=== PATIENT | male | born 1950 | race Caucasian/White ===

== ENCOUNTER 2022-05-15 10:56 | Emergency (ER) | payer MEDICARE ==
--- OUTSIDE RECORDS SUMMARY | 2022-05-15 11:04 | XMS REPORT | Continuity of Care Document ---
:1950 Author Organization [facility] t Address [address] [place] [address] Care Team Providers Name Role Phone MD MIKA YEUNG Primary Care Physician Malachi Gomez Attending Clinician Unavailable Melissa Montoya Attending Clinician Lisa Attending Clinician Unavailable Naomie Attending Clinician Unavailable Kerline Attending Clinician Unavailable Foreign Soria Attending Clinician [phone] CLYDE LIRA Attending Clinician Unavailable Aldair Mondragon Jr. Attending Clinician JUSTIN GUERRERO Attending Clinician Unavailable MAHAD COWART Attending Clinician Unavailable Clyde Lira Admitting Clinician Unavailable Lisa Admitting Clinician Unavailable Naomie Admitting Clinician Unavailable Kerline Admitting Clinician Unavailable MAHAD COWART Admitting Clinician Unavailable Payers Payer Name Policy Type Policy Number Effective Date Expiration Date S [place] [facility] 2019 (MEDICARE 00:00:00 REPLACEMENT HMO) [facility] 2020 MCR 00:00:00 Problems Condition Condition Condition Status Onset Resolution Last Treating Co mments Source Name Details Category Date Date Treatment Clinician Date Testicular Testicular Problem Active [place] [facility] Hypofuncti 2-01 Me tro on on 00:00: Urology 00 Body mass Body Mass Problem Active Tony ston index 30+ Index 30+ 2-01 Metr o - obesity - Obesity 00:00: Urol ogy 00 Bladder Bladder Problem Active [place] outlet Outlet 2- [facility] obstructio Obstructio 00:00: Ur ology n n 00 Secondary Secondary Problem Active [facility] ston erectile Erectile 2- [facility] dysfunctio Dysfunctio 00:00: Ur ology n n 00 Problem Condition Active [facility] Allergies, Adverse Reactions, Alerts Allergy Allergy Status Severity Reaction(s) Onset Inactive Treating Comm ents Source Name Type Date Date Clinician No Known DA Active [facility] Allergie 5-04 Clear s 00:00: [place] 00 [facility] NO KNOWN Allergy Active [facility] No Known DA Active [facility] Social History Social Habit Start Date Stop Date Quantity Comments Source History SDOH [facility] Std Drinks [facility] History SDOH [facility] Alcohol Binge [facility] History SDOH [facility] Alcohol Comment Medical C enter Tobacco use and 2020-11-03 2020-11-[address] [facility] [address] [facility] exposure 00:00:00 00:00:00 [facility] Alcohol intake 2020-11-03 2020-11-[address] [facility] 00:00:00 00:00:00 non-drinker Medical Cent[facility] r (finding) History SDOH 2020-11-03 2020-11-[address] [facility] Alcohol Frequency 00:00:00 00:00:00 [facility] Sex Assigned At [address] 00:00:00 00:00:00 [facility] Smoking Status Start Date Stop Date Source Never Smoker [facility] Ur ology Medications Ordered Filled Start Stop Current Ordering Indication Dosage Frequency Signature Comments Components Source Medication Medication Date Date Medication? Clinician (SIG) Name Name aspirin 81 Yes 81mg Take [address] [facility] chewable 6-21 by mouth. Ayad es tablet 11:21: Medical 40 [place] losartan Yes 50mg Q.5D Take [address] (COZAAR) 50 6-11 by mouth 2 Gianna kes MG tablet 00:00: (two) Medical 00 times Center daily. lovastatin Yes TAKE 1 [facility] (MEVACOR) 6-09 TABLET BY [facility]ukes 20 MG 00:00: MOUTH ONCE Medica l tablet 00 DAILY WITH Center A MEAL FOR 90 DAYS clopidogreL Yes 75mg QD Take [address] (PLAVIX) 75 6-08 by mouth Luke s mg tablet 00:00: daily. Medica l [place] metoprolol Yes 25mg QD Take [address] succinate 5-31 by mouth [facility]ukes (TOPROL-XL) 00:00: daily. Medi taryn 25 MG 24 hr 00 Center tablet montelukast Yes 10mg QD Take [address] (SINGULAIR) 5-23 by mouth Luke s 10 mg 00:00: daily. Medical tablet 00 [place] amLODIPine Yes 5mg QD Take [address] (NORVASC) 5 4-25 by mouth Luke s MG tablet 00:00: daily. Medica l 00 [place] fenofibrate Yes 54mg QD Take [address] (LOFIBRA) 4-25 by mouth Lukes 54 MG 00:00: daily. Medical tablet 00 [place] levocetiriz Yes TAKE [address] ine (XYZAL) 4-11 TABLET BY Ayad es 5 MG tablet 00:00: MOUTH ONCE Medical 00 DAILY IN Center THE EVENING FOR 90 DAYS citalopram Yes 20mg QD Take [address] (CeleXA) 20 4-10 by mouth Luke s MG tablet 00:00: daily. Medica l 00 [place] amlodipine amlodipine No amlodipine [place] 5 mg tablet 5 mg tablet 5 mg M etro TAKE 1 TAKE 1 tablet Urology TABLET BY TABLET BY TAKE 1 MOUTH ONCE MOUTH ONCE TABLET BY DAILY DAILY MOUTH ONCE DAILY atorvastati atorvastati No atorvastat [place] 40 mg n 40 mg in 40 mg [facility] tablet TAKE tablet TAKE tablet Urology 1 TABLET BY 1 TABLET BY TAKE 1 MOUTH ONCE MOUTH ONCE TABLET BY DAILY DAILY MOUTH ONCE DAILY citalopram citalopram No citalopram [place] 20 mg 20 mg 20 mg [facility] tablet TAKE tablet TAKE tablet Urology 1 TABLET BY 1 TABLET BY TAKE 1 MOUTH ONCE MOUTH ONCE TABLET BY DAILY DAILY MOUTH ONCE DAILY clobetasol clobetasol No clobetasol [place] 0.05 % 0.05 % 0.05 % [facility] topical topical topical Urolog y cream APPLY cream APPLY cream CREAM CREAM APPLY EXTERNALLY EXTERNALLY CREAM TWICE DAILY TWICE DAILY EXTERNALLY FOR 10 DAYS FOR 10 DAYS TWICE DAILY FOR 10 DAYS clopidogrel clopidogrel No clopidogre [place] 75 mg 75 mg l 75 mg [facility] tablet tablet tablet Urology fenofibrate fenofibrate No fenofibrat [place] 54 mg 54 mg e 54 mg [facility] tablet TAKE tablet TAKE tablet Urology 1 TABLET BY 1 TABLET BY TAKE 1 MOUTH ONCE MOUTH ONCE TABLET BY DAILY DAILY MOUTH ONCE DAILY fluorometho fluorometho No fluorometh [place] lone 0.1 % lone 0.1 % olone 0.1 [facility] eye eye % eye Urology drops,suspe drops,suspe drops,susp nsion nsion ension INSTILL ONE INSTILL ONE INSTILL (1) DROP(S) (1) DROP(S) ONE (1) IN LEFT EYE IN LEFT EYE DROP(S) IN ONCE A DAY. ONCE A DAY. LEFT EYE ONCE A DAY. glipizide glipizide No glipizide [place] ER 5 mg ER 5 mg ER 5 mg [facility] tablet, tablet, tablet, Urolog y extended extended extended release 24 release 24 release 24 hr TAKE 1 hr TAKE 1 hr TAKE 1 TABLET BY TABLET BY TABLET BY MOUTH ONCE MOUTH ONCE MOUTH ONCE DAILY WITH DAILY WITH DAILY WITH FOOD FOOD FOOD levocetiriz levocetiriz No levocetiri [place] cathy selby [facility] losartan 50 losartan 50 No losartan Whit[place] mg tablet mg tablet 50 mg Metr o TAKE 1 TAKE 1 tablet Urology TABLET BY TABLET BY TAKE 1 MOUTH TWICE MOUTH TWICE TABLET BY DAILY DAILY MOUTH TWICE DAILY metoprolol metoprolol No metoprolol [place] succinate succinate succinate [facility] ER 25 mg ER 25 mg ER 25 mg Uro logy tablet,exte tablet,exte tablet,ext nded nded ended release 24 release 24 release 24 hr TAKE 1 hr TAKE 1 hr TAKE 1 TABLET BY TABLET BY TABLET BY MOUTH ONCE MOUTH ONCE MOUTH ONCE DAILY DAILY DAILY montelukast montelukast No montelukas [place] t [facility] montelukast montelukast No montelukas [place] 10 mg 10 mg t 10 mg [facility] tablet tablet tablet Urology rosuvastati rosuvastati No rosuvastat [place] n n in [facility] amlodipine amlodipine No amlodipine [place] 5 mg tablet 5 mg tablet 5 mg M etro TAKE 1 TAKE 1 tablet Urology TABLET BY TABLET BY TAKE 1 MOUTH ONCE MOUTH ONCE TABLET BY DAILY DAILY MOUTH ONCE DAILY atorvastati atorvastati No atorvastat [place] n 40 mg n 40 mg in 40 mg [facility] tablet TAKE tablet TAKE tablet Urology 1 TABLET BY 1 TABLET BY TAKE 1 MOUTH ONCE MOUTH ONCE TABLET BY DAILY DAILY MOUTH ONCE DAILY citalopram citalopram No citalopram [place] 20 mg 20 mg 20 mg [facility] tablet TAKE tablet TAKE tablet Urology 1 TABLET BY 1 TABLET BY TAKE 1 MOUTH ONCE MOUTH ONCE TABLET BY DAILY DAILY MOUTH ONCE DAILY clobetasol clobetasol No clobetasol [place] 0.05 % 0.05 % 0.05 % [facility] topical topical topical Urolog y cream APPLY cream APPLY cream CREAM CREAM APPLY EXTERNALLY EXTERNALLY CREAM TWICE DAILY TWICE DAILY EXTERNALLY FOR 10 DAYS FOR 10 DAYS TWICE DAILY FOR 10 DAYS clopidogrel clopidogrel No clopidogre [place] 75 mg 75 mg l 75 mg [facility] tablet TAKE tablet TAKE tablet Urology 1 TABLET BY 1 TABLET BY TAKE 1 MOUTH ONCE MOUTH ONCE TABLET BY DAILY DAILY MOUTH ONCE DAILY fenofibrate fenofibrate No fenofibrat [place] 54 mg 54 mg e 54 mg [facility] tablet TAKE tablet TAKE tablet Urology 1 TABLET BY 1 TABLET BY TAKE 1 MOUTH ONCE MOUTH ONCE TABLET BY DAILY DAILY MOUTH ONCE DAILY fluorometho fluorometho No fluorometh [place] lone 0.1 % lone 0.1 % olone 0.1 [facility] eye eye % eye Urology drops,suspe drops,suspe drops,susp nsion nsion ension INSTILL ONE INSTILL ONE INSTILL (1) DROP(S) (1) DROP(S) ONE (1) IN LEFT EYE IN LEFT EYE DROP(S) IN ONCE A DAY. ONCE A DAY. LEFT EYE ONCE A DAY. glipizide glipizide No glipizide [place] ER 5 mg ER 5 mg ER 5 mg [facility] tablet, tablet, tablet, Urolog y extended extended extended release 24 release 24 release 24 hr TAKE 1 hr TAKE 1 hr TAKE 1 TABLET BY TABLET BY TABLET BY MOUTH ONCE MOUTH ONCE MOUTH ONCE DAILY WITH DAILY WITH DAILY WITH FOOD FOOD FOOD levocetiriz levocetiriz No levocetiri [place] cathy selby [facility] losartan 50 losartan 50 No losartan Whit[place] mg tablet mg tablet 50 mg Metr o TAKE 1 TAKE 1 tablet Urology TABLET BY TABLET BY TAKE 1 MOUTH TWICE MOUTH TWICE TABLET BY DAILY DAILY MOUTH TWICE DAILY metoprolol metoprolol No metoprolol [place] succinate succinate succinate [facility] ER 25 mg ER 25 mg ER 25 mg Uro logy tablet,exte tablet,exte tablet,ext nded nded ended release 24 release 24 release 24 hr TAKE 1 hr TAKE 1 hr TAKE 1 TABLET BY TABLET BY TABLET BY MOUTH ONCE MOUTH ONCE MOUTH ONCE DAILY DAILY DAILY montelukast montelukast No montelukas [place] t [facility] montelukast montelukast No montelukas [place] 10 mg 10 mg t 10 mg [facility] tablet tablet tablet Urology rosuvastati rosuvastati No rosuvastat [place] n n in [facility] amlodipine amlodipine No amlodipine [place] 5 mg tablet 5 mg tablet 5 mg M etro TAKE 1 TAKE 1 tablet Urology TABLET BY TABLET BY TAKE 1 MOUTH ONCE MOUTH ONCE TABLET BY DAILY DAILY MOUTH ONCE DAILY atorvastati atorvastati No atorvastat [place] n 40 mg n 40 mg in 40 mg [facility] tablet TAKE tablet TAKE tablet Urology 1 TABLET BY 1 TABLET BY TAKE 1 MOUTH ONCE MOUTH ONCE TABLET BY DAILY DAILY MOUTH ONCE DAILY citalopram citalopram No citalopram [place] 20 mg 20 mg 20 mg [facility] tablet TAKE tablet TAKE tablet Urology 1 TABLET BY 1 TABLET BY TAKE 1 MOUTH ONCE MOUTH ONCE TABLET BY DAILY DAILY MOUTH ONCE DAILY clobetasol clobetasol No clobetasol [place] 0.05 % 0.05 % 0.05 % [facility] topical topical topical Urolog y cream APPLY cream APPLY cream CREAM CREAM APPLY EXTERNALLY EXTERNALLY CREAM TWICE DAILY TWICE DAILY EXTERNALLY FOR 10 DAYS FOR 10 DAYS TWICE DAILY FOR 10 DAYS clopidogrel clopidogrel No clopidogre [place] 75 mg 75 mg l 75 mg [facility] tablet TAKE tablet TAKE tablet Urology 1 TABLET BY 1 TABLET BY TAKE 1 MOUTH ONCE MOUTH ONCE TABLET BY DAILY DAILY MOUTH ONCE DAILY fenofibrate fenofibrate No fenofibrat [place] 54 mg 54 mg e 54 mg [facility] tablet TAKE tablet TAKE tablet Urology 1 TABLET BY 1 TABLET BY TAKE 1 MOUTH ONCE MOUTH ONCE TABLET BY DAILY DAILY MOUTH ONCE DAILY fluorometho fluorometho No fluorometh [place] 0.1 % lone 0.1 % olone 0.1 [facility] eye eye % eye Urology drops,suspe drops,suspe drops,susp nsion nsion ension INSTILL ONE INSTILL ONE INSTILL (1) DROP(S) (1) DROP(S) ONE (1) IN LEFT EYE IN LEFT EYE DROP(S) IN ONCE A DAY. ONCE A DAY. LEFT EYE ONCE A DAY. glipizide glipizide No glipizide [place] ER 5 mg ER 5 mg ER 5 mg [facility] tablet, tablet, tablet, Urolog y extended extended extended release 24 release 24 release 24 hr TAKE 1 hr TAKE 1 hr TAKE 1 TABLET BY TABLET BY TABLET BY MOUTH ONCE MOUTH ONCE MOUTH ONCE DAILY WITH DAILY WITH DAILY WITH FOOD FOOD FOOD levocetiriz levocetiriz No levocetiri [place] ine ine zine [facility] losartan 50 losartan 50 No losartan [place] mg tablet mg tablet 50 mg Metr o TAKE 1 TAKE 1 tablet Urology TABLET BY TABLET BY TAKE 1 MOUTH TWICE MOUTH TWICE TABLET BY DAILY DAILY MOUTH TWICE DAILY metoprolol metoprolol No metoprolol [place] succinate succinate succinate [facility] ER 25 mg ER 25 mg ER 25 mg Uro logy tablet,exte tablet,exte tablet,ext nded nded ended release 24 release 24 release 24 hr TAKE 1 hr TAKE 1 hr TAKE 1 TABLET BY TABLET BY TABLET BY MOUTH ONCE MOUTH ONCE MOUTH ONCE DAILY DAILY DAILY montelukast montelukast No montelukas [place] t [facility] montelukast montelukast No montekas [place] 10 mg 10 mg t 10 mg [facility] tablet tablet tablet Urology rosuvastati rosuvastati No rosuvastat [place] n n in [facility] testosteron testosteron No .5mL Q1W testostero [place] e cypionate e cypionate ne M etro 200 mg/mL 200 mg/mL cypionate Urology intramuscul intramuscul 200 mg/mL ar oil ar oil intramuscu Inject 0.5 Inject 0.5 lar oil mL every mL every Inject 0.5 week by week by mL every intramuscul intramuscul week by ar route ar route intramuscu for 28 for 28 lar route days. days. for 28 days. Vascepa 1 Vascepa 1 No Vascepa 1 [place] gram gram gram [facility] capsule capsule capsule Urolog y TAKE 2 TAKE 2 TAKE 2 CAPSULES BY CAPSULES BY CAPSULES MOUTH TWICE MOUTH TWICE BY MOUTH DAILY WITH DAILY WITH TWICE MEALS MEALS DAILY WITH MEALS amlodipine amlodipine No amlodipine [place] 5 mg tablet 5 mg tablet 5 mg M etro TAKE 1 TAKE 1 tablet Urology TABLET BY TABLET BY TAKE 1 MOUTH ONCE MOUTH ONCE TABLET BY DAILY DAILY MOUTH ONCE DAILY citalopram citalopram No citalopram [place] 20 mg 20 mg 20 mg [facility] tablet TAKE tablet TAKE tablet Urology 1 TABLET BY 1 TABLET BY TAKE 1 MOUTH ONCE MOUTH ONCE TABLET BY DAILY DAILY MOUTH ONCE DAILY clobetasol clobetasol No clobetasol [place] 0.05 % 0.05 % 0.05 % [facility] topical topical topical Urolog y cream APPLY cream APPLY cream CREAM CREAM APPLY EXTERNALLY EXTERNALLY CREAM TWICE DAILY TWICE DAILY EXTERNALLY FOR 10 DAYS FOR 10 DAYS TWICE DAILY FOR 10 DAYS clopidogrel clopidogrel No clopidogre [place] 75 mg 75 mg l 75 mg [facility] tablet tablet tablet Urology fenofibrate fenofibrate No fenofibrat [place] 54 mg 54 mg e 54 mg [facility] tablet TAKE tablet TAKE tablet Urology 1 TABLET BY 1 TABLET BY TAKE 1 MOUTH ONCE MOUTH ONCE TABLET BY DAILY DAILY MOUTH ONCE DAILY fluorometho fluorometho No fluorometh [place] lone 0.1 % lone 0.1 % olone 0.1 [facility] eye eye % eye Urology drops,suspe drops,suspe drops,susp nsion nsion ension INSTILL ONE INSTILL ONE INSTILL (1) DROP(S) (1) DROP(S) ONE (1) IN LEFT EYE IN LEFT EYE DROP(S) IN ONCE A DAY. ONCE A DAY. LEFT EYE ONCE A DAY. glipizide glipizide No glipizide [place] ER 5 mg ER 5 mg ER 5 mg [facility] tablet, tablet, tablet, Urolog y extended extended extended release 24 release 24 release 24 hr TAKE 1 hr TAKE 1 hr TAKE 1 TABLET BY TABLET BY TABLET BY MOUTH ONCE MOUTH ONCE MOUTH ONCE DAILY WITH DAILY WITH DAILY WITH FOOD FOOD FOOD levocetiriz levocetiriz No levocetiri [place] ine ine zine [facility] losartan 50 losartan 50 No losartan [place] mg tablet mg tablet 50 mg Metr o TAKE 1 TAKE 1 tablet Urology TABLET BY TABLET BY TAKE 1 MOUTH TWICE MOUTH TWICE TABLET BY DAILY DAILY MOUTH TWICE DAILY metoprolol metoprolol No 1 Q1D metoprolol [place] succ 25 succ 25 succ 25 [facility] mg-hydrochl mg-hydrochl mg-hydroch Urology orothiazide orothiazide lorothiazi 12.5 mg 12.5 mg de 12.5 mg tablet,ext. tablet,ext. tablet,ext rel 24 hr rel 24 hr .rel 24 hr Take 1 Take 1 Take 1 tablet tablet tablet every day every day every day by oral by oral by oral route. route. route. metoprolol metoprolol No metoprolol [place] succinate succinate succinate [facility] ER 25 mg ER 25 mg ER 25 mg Uro logy tablet,exte tablet,exte tablet,ext nded nded ended release 24 release 24 release 24 hr TAKE 1 hr TAKE 1 hr TAKE 1 TABLET BY TABLET BY TABLET BY MOUTH ONCE MOUTH ONCE MOUTH ONCE DAILY DAILY DAILY montelukast montelukast No montelukas [place] t [facility]el[facility] t 10 mg [facility] tablet tablet tablet Urology rosuvastati rosuvastati No rosuvastat [place] n n in [facility] amlodipine amlodipine No amlodipine [place] 5 mg tablet 5 mg tablet 5 mg M etro TAKE 1 TAKE 1 tablet Urology TABLET BY TABLET BY TAKE 1 MOUTH ONCE MOUTH ONCE TABLET BY DAILY DAILY MOUTH ONCE DAILY atorvastati atorvastati No atorvastat [place] n 40 mg n 40 mg in 40 mg [facility] tablet TAKE tablet TAKE tablet Urology 1 TABLET BY 1 TABLET BY TAKE 1 MOUTH ONCE MOUTH ONCE TABLET BY DAILY DAILY MOUTH ONCE DAILY citalopram citalopram No citalopram [place] 20 mg 20 mg 20 mg [facility] tablet TAKE tablet TAKE tablet Urology 1 TABLET BY 1 TABLET BY TAKE 1 MOUTH ONCE MOUTH ONCE TABLET BY DAILY DAILY MOUTH ONCE DAILY clobetasol clobetasol No clobetasol [place] 0.05 % 0.05 % 0.05 % [facility] topical topical topical Urolog y cream APPLY cream APPLY cream CREAM CREAM APPLY EXTERNALLY EXTERNALLY CREAM TWICE DAILY TWICE DAILY EXTERNALLY FOR 10 DAYS FOR 10 DAYS TWICE DAILY FOR 10 DAYS clopidogrel clopidogrel No clopidogre [place] 75 mg 75 mg l 75 mg [facility] tablet tablet tablet Urology fenofibrate fenofibrate No fenofibrat [place] 54 mg 54 mg e 54 mg [facility] tablet TAKE tablet TAKE tablet Urology 1 TABLET BY 1 TABLET BY TAKE 1 MOUTH ONCE MOUTH ONCE TABLET BY DAILY DAILY MOUTH ONCE DAILY fluorometho fluorometho No fluorometh [place] lone 0.1 % lone 0.1 % olone 0.1 [facility] eye eye % eye Urology drops,suspe drops,suspe drops,susp nsion nsion ension INSTILL ONE INSTILL ONE INSTILL (1) DROP(S) (1) DROP(S) ONE (1) IN LEFT EYE IN LEFT EYE DROP(S) IN ONCE A DAY. ONCE A DAY. LEFT EYE ONCE A DAY. glipizide glipizide No glipizide [place] ER 5 mg ER 5 mg ER 5 mg [facility] tablet, tablet, tablet, Urolog y extended extended extended release 24 release 24 release 24 hr TAKE 1 hr TAKE 1 hr TAKE 1 TABLET BY TABLET BY TABLET BY MOUTH ONCE MOUTH ONCE MOUTH ONCE DAILY WITH DAILY WITH DAILY WITH FOOD FOOD FOOD levocetiriz levocetiriz No levocetiri [place] ine ine zine [facility] losartan 50 losartan 50 No losartan [place] mg tablet mg tablet 50 mg Metr o TAKE 1 TAKE 1 tablet Urology TABLET BY TABLET BY TAKE 1 MOUTH TWICE MOUTH TWICE TABLET BY DAILY DAILY MOUTH TWICE DAILY metoprolol metoprolol No 1 Q1D metoprolol [place] succ 25 succ 25 succ 25 [facility] mg-hydrochl mg-hydrochl mg-hydroch Urology orothiazide orothiazide lorothiazi 12.5 mg 12.5 mg de 12.5 mg tablet,ext. tablet,ext. tablet,ext rel 24 hr rel 24 hr .rel 24 hr Take 1 Take 1 Take 1 tablet tablet tablet every day every day every day by oral by oral by oral route. route. route. metoprolol metoprolol No metoprolol [place] succinate succinate succinate [facility] ER 25 mg ER 25 mg ER 25 mg Uro logy tablet,exte tablet,exte tablet,ext nded nded ended release 24 release 24 release 24 hr TAKE 1 hr TAKE 1 hr TAKE 1 TABLET BY TABLET BY TABLET BY MOUTH ONCE MOUTH ONCE MOUTH ONCE DAILY DAILY DAILY montelukast montelukast No montelukas [place] t [facility] montelukast montelukast No montelukas [place] 10 mg 10 mg t 10 mg [facility] tablet tablet tablet Urology rosuvastati rosuvastati No rosuvastat [place] [facility] Amlodipine Amlodipine Yes Daily [facility] Besylate Besylate [facility] Aspirin Aspirin Yes 81 [facility] Citalopram Citalopram Yes [address] Hydrobromid Hydrobromid L ukes e e Patient (Citalopram (Citalopram M edical Hbr) 20 Mg Hbr) [address] TABLET TABLET Clopidogrel Clopidogrel Yes Daily [facility] Bisulfate Bisulfate [facility] (Clopidogre (Clopidogre P atient l) 75 Mg l) 75 Mg Medical TABLET TABLET Center Fenofibrate Fenofibrate Yes [address] Nanocrystal Nanocrystal L ukes lized lized Patient (Fenofibrat (Fenofibrat M edical e) 145 Mg e) 145 Mg Cente r TABLET TABLET Fluromethol Fluromethol Yes [address] [facility] Folic Acid Folic Acid Yes 1 [facility] Losartan Losartan Yes [facility] Potassium Potassium [facility] Lovastatin Lovastatin Yes [facility] Metoprolol Metoprolol Yes 25 Daily [facility] Montelukast Montelukast Yes [address] Sodium Sodium [facility] Sitagliptin Sitagliptin Yes Daily [facility] Phosphate Phosphate [facility] (Januvia) (Januvia) Patie nt 100 Mg 100 Mg Medical TABLET TABLET Center Fluromethol Fluromethol 2020- No [facility]-14 [facility] 00:00 Patient :00 Medical Center Vital Signs Vital Name Observation Time Observation Value Comments Source BP Diastolic 2021-10-13 00:00:00 76 mm[Hg] [facility] Height 2021-10-13 00:00:00 68 [in_i] [facility] BMI (Body Mass Index) 2021-10-13 00:00:00 31.9 kg/m2 [facility] BP Systolic 2021-10-13 00:00:00 120 mm[Hg] [facility] Body Weight 2021-10-13 00:00:00 210 [lb_av] [facility] BP Diastolic 2021-09-22 00:00:00 76 mm[Hg] [facility] Height 2021-09-22 00:00:00 68 [in_i] [place] [facility] BMI (Body Mass Index) 2021-09-22 00:00:00 31.9 kg/m2 [place] [facility] BP Systolic 2021-09-22 00:00:00 120 mm[Hg] [place] [facility] Body Weight 2021-09-22 00:00:00 210 [lb_av] [place] [facility] BP Diastolic 2021-09-08 00:00:00 76 mm[Hg] [place] [facility] Height 2021-09-08 00:00:00 68 [in_i] [place] [facility] BMI (Body Mass Index) 2021-09-08 00:00:00 31.9 kg/m2 [place] [facility] BP Systolic 2021-09-08 00:00:00 120 mm[Hg] [place] [facility] Body Weight 2021-09-08 00:00:00 210 [lb_av] [place] [facility] BP Diastolic 2021-08-25 00:00:00 76 mm[Hg] [place] [facility] Height 2021-08-25 00:00:00 68 [in_i] [place] [facility] BMI (Body Mass Index) 2021-08-25 00:00:00 31.9 kg/m2 [place] [facility] BP Systolic 2021-08-25 00:00:00 120 mm[Hg] [place] [facility] Body Weight 2021-08-25 00:00:00 210 [lb_av] [place] [facility] BP Diastolic 2021-08-11 00:00:00 80 [facility]Hg[facility] 2021-08-11 00:00:00 68 [in_i] [place] [facility] BMI (Body Mass Index) 2021-08-11 00:00:00 31.9 kg/m2 [place] [facility] BP Systolic 2021-08-11 00:00:00 120 mm[facility]Hg[facility] Body Weight 2021-08-11 00:00:00 210 [lb_av[facility] HEIGHT 2020-11-03 11:21:00 172.7 cm WEIGHT 2020-11-03 11:21:00 94.348 kg Body Temperature 2020-01-16 10:15:00 98.1 [degF] [facility] Heart Rate 2020-01-16 10:15:00 73 /min [facility] Respiratory rate 2020-01-16 10:15:00 19 /min [facility] BP Systolic 2020-01-16 10:15:00 113 mm[Hg] [facility] BP Diastolic 2020-01-16 10:15:00 80 mm[Hg] [facility] Oxygen saturation by 2020-01-16 10:15:00 97 /min [facility] Pulse oximetry Patient Medic al Center Body Temperature 2020-01-16 09:15:00 98.1 [degF] [facility] Procedures Procedure Date / Time Performed Performing Clinician [facility] TOTAL HIP ARTHROPLASTY 2020-01-15 00:00:[address] [facility] X-ray of chest, two 2020-01-11 00:00:00 [facility] Plan of Care Planned Activity Planned Date Details Comments Source Future Scheduled 2022-01-14 INFLUENZA VACCINE (#1) [facility] 00:00:00 [code = INFLUENZA Medical Ce nter VACCINE (#1)] Future Scheduled 2021-05-[address] [facility] 00:00:00 WELLNESS (YEAR 2 or Medical Center FIRST YEAR if no IPPE) [code = MEDICARE ANNUAL WELLNESS (YEAR 2 or FIRST YEAR if no IPPE)] Future Scheduled 2021-05-[address] [facility] Test 00:00:00 (12+) [code = Medical Center DEPRESSION SCREENING (12+)] Future Scheduled 2021-05-16 FALLS RISK SCREENING [facility] Test 00:00:00 [code = FALLS RISK Medical C enter SCREENING] Future Scheduled 2020-10-08 DTAP/TDAP/TD VACCINES [facility] 00:00:00 (2 - Td or Tdap) [code Medic [place] Center = DTAP/TDAP/TD VACCINES (2 - Td or Tdap)] Future Scheduled 2013 PNEUMOCOCCAL 65+ YRS ([address] [facility] 00:00:00 - PCV) [code = Medical Cente r PNEUMOCOCCAL 65+ YRS (1 - PCV)] Future Scheduled 1998 SHINGLES VACCINES ([address] [facility] 00:00:00 2) [code = SHINGLES Medical Center VACCINES (1 of 2)] Future Scheduled 1966 HEPATITIS C SCREENING [facility] 00:00:00 [code = HEPATITIS C Medical Center SCREENING] Future Scheduled [address] [facility] 00:00:00 Counseling and Medical Cente r Screening (12+) [code = Tobacco Cessation Counseling and Screening (12+)] Future Scheduled 1949-05-18 COVID-19 VACCINE (#1) [facility] 00:00:00 [code = COVID-[address] VACCINE (#1)] Future Scheduled 1948 CT Colonography (combo) [facility] 00:00:00 [code = CT Colonography [facility] (combo)] Future Scheduled 1948 Screening for malignant [facility] 00:00:00 neoplasm of colon Medical Ce nter (procedure) [code = 958707066] Future Scheduled 1948 Screening for malignant [facility] 00:00:00 neoplasm of colon Medical Ce nter (procedure) [code = 135336608] Future Scheduled 1948 Screening for malignant [facility] 00:00:00 neoplasm of colon Medical Ce nter (procedure) [code = 343749706] Future Scheduled 1948 Screening for malignant [facility] 00:00:00 neoplasm of colon Medical Ce nter (procedure) [code = 438398499] Future Scheduled 1948 Sigmoidoscopy [code = [facility] 00:[facility] Sigmoidoscopy] Medical Cente r Encounters Start End Encounter Admission Attending Care Care Encounter Source Date/Time Date/Time Type Type Clinicians Facility Department ID 2021-01-29 Inpatient [facility] [id number] [facility] 11:16:00 -[id number] [facility] 2020-11-18 Inpatient [facility] [id number] [facility] 15:35:00 -[id number] [facility] 2020-09-19 Inpatient Malachi Gomez [facility] HCABM [id number] [facility] 12:18:48 90 [facility] 2020-02-21 Inpatient [facility] [id number] [facility] 15:27:00 -[id number] [facility] 2022-03-05 2022-03-05 [facility]era [id number]. [facility] [id number] [facility] 16:00:00 17:00:00 Lindsay [id number]. [facility] [id number] 2022-02-23 2022-02-23 Outpatient Iyanoye_S DMG [facility] 00:00:00 00:00:00 [facility]1 [facility] 2021-12-15 2021-12-15 Outpatient Johnson_J DMG DM [facility] 00:00:00 00:00:00 0802 [facility] 2021-11-27 2021-11-27 Outpatient Johnson_J DMG DMG [id number] [facility] 04:13:00 04:13:00 0715 [facility] 2021-10-13 2021-10-13 Outpatient Watkins_H [facility]U [facility] [id number] [place] 03:29:00 03:29:00 [id number] [facility] 2021-10-13 2021-10-13 Foreign [facility] [place] - [id number] oj 00:00:00 00:00:00 Joseline Turner Urology MD: [address] [place] [address] [facility], [place] [address] , Ph. 2021-10-13 2021-10-13 Outpatient Soria, U [facility] [id number] 00:00:00 00:00:00 Foreign 110-11ec-a Jaxon [id number] 2021-10-04 2021-10-04 Outpatient Watkins_H [facility] [id number] [place] 02:38:00 02:38:00 [id number] [facility] 2021-09-23 2021-09-23 Outpatient [facility] [id number] 10:47:00 10:47:00 -[id number] [facility] 2021-09-22 2021-09-22 Outpatient Watkins_H HMU HMU [id number] [place] 03:50:00 03:50:00 [facility] 2021-09-22 2021-09-22 Foreign U [place] - [id number] H [facility] 00:00:00 00:00:00 Joseline Turner Urology : [facility] [address], [place] [address] , Ph. 2021-09-22 2021-09-22 Outpatient Soria, HMU HMU [id number] 00:00:00 00:00:00 Foreign [id number]-8 Jaxon [id number] 2021-09-10 2021-09-10 Outpatient Watkins_H HMU [facility]U [id number] [place] 02:22:00 02:22:00 [id number] [facility] 2021-09-08 2021-09-08 Outpatient Watkins_H [facility]U [facility]U [id number] [place] 12:19:00 12:19:00 [id number] [facility] 2021-09-08 2021-09-08 Outpatient Soria, HMU HMU [id number] 00:00:00 00:00:00 Foreign 59a-11ec-a Jaxon [id number] 2021-09-08 2021-09-08 Foreign [facility] [place] - [id number] H [facility] 00:00:00 00:00:00 Joseline Turner Urologbc [place]: [address] [address], [place] [address] , Ph. 2021-08-26 2021-08-26 Outpatient Watkins_H HMU [facility]U [id number] [place] 08:07:00 08:07:00 [id number] [facility] 2021-08-25 2021-08-25 Outpatient Watkins_H HMU [facility]U [id number] [place] 02:08:00 02:08:00 [id number] [facility] 2021-08-25 2021-08-25 Outpatient Soria, HMU HMU [id number] 00:00:00 00:00:00 Foreign [id number]-[id number] Jaxon [id number] 2021-08-25 2021-08-25 Foreign HMU [place] - [id number] H [facility] 00:00:00 00:00:00 Joseline Turner Urology : [facility] [address], [place] [address] , Ph. 2021-08-13 2021-08-13 Outpatient Watkins_H HMU [facility]U [id number] [place] 05:35:00 05:35:00 [id number] [facility] 2021-08-13 2021-08-13 Outpatient Watkins_H HMU [facility]U [id number] [place] 05:35:00 05:35:00 [id number] [facility] 2021-08-11 2021-08-11 Outpatient Watkins_H HMU [facility]U [id number] [place] 12:24:00 12:24:00 [id number] [facility] 2021-08-11 2021-08-11 Outpatient Soria, HMU HMU [id number] 00:00:00 00:00:00 Foreign 10b-11ec-a Jaxon [id number] 2021-08-11 2021-08-11 Foreign U [place] - [id number] [facility] 00:00:00 00:00:00 Joseline Turner Urologbc [place]: [address], [place] [address] , Ph. 2021-07-31 2021-07-31 Outpatient Watkins_H HMU HMU [id number] [place] 03:58:00 03:58:00 35100 [facility] 2021-07-26 2021-07-26 Outpatient Watkins_H HMU HMU [id number] [place] 12:58:00 12:58:00 [id number] [facility] 2021-07-26 2021-07-26 Outpatient Watkins_H HMU [facility]U [id number] [place] 12:58:00 12:58:00 [id number] [facility] 2021-06-17 2021-06-17 Outpatient Watkins_H HMU HMU [id number] [place] 08:30:00 08:30:00 [facility] 2021-06-16 2021-06-16 Outpatient Watkins_H HMU HMU [id number] [place] 12:15:00 12:15:00 [facility] 2021-04-29 2021-04-29 Outpatient Watkins_H HMU HMU [id number] [place] 10:02:00 10:02:00 [id number] [facility] 2021-04-29 2021-04-29 Outpatient Watkins_H HMU HMU [id number] [place] 10:02:00 10:02:00 [facility] 2021-04-20 2021-04-20 REDDY Mondragon 2.16.840. [id number]. [id number] [facility] 16:00:00 17:00:00 Post-Techn [id number]. [facility] Medical ician [id number] Visit [id number] 2020-11-28 2020-11-[address] [facility] [id number] 00:00:00 00:00:00 [facility] 2020-11-03 2020-11-[address] [facility] [id number] 00:00:00 00:00:00 [facility] 2020-10-31 2020-10-[address] [facility] [id number] 00:00:00 00:00:00 [facility] 2020-10-27 2020-10-27 Outpatient Malachi Omer HCABM DAYS [id number] [facility] 07:00:00 07:00:[address] [place] [address] 2020-10-202020-10-20 Outpatient Malachi Gomez HCACL LABO [id number] [facility] 13:26:00 13:26:00 99 [facility] 2020-09-18 2020-09-18 Outpatient Naomie CURRY DMG [id number] [facility] 03:58:00 03:58:00 0506 [facility] 2020-09-16 2020-09-16 Outpatient Malachi Gomez HCACL LABO [id number] [facility] 11:33:00 11:33:00 74 [facility] 2020-02-20 2020-03-16 Discharged [facility] [id number] 11:12:00 00:59:00 Recurring Patients 64 Ayad es [facility] 2020-02-20 2020-02-20 Outpatient [facility] [id number] 10:12:00 10:12:00 -[id number] [facility] 2020-01-15 2020-01-16 Discharged 3 SOFYA, [facility] A[id number] [facility] 10:09:00 13:10:00 Inpatient MAHAD Patients 34 Ayad es (obs) [facility] 2020-01-15 2020-01-15 Outpatient [facility] [id number] 08:30:00 08:30:00 -[id number] [facility] 2019-12-03 2019-12-03 Outpatient [facility] [id number] 09:30:00 09:30:00 -[id number] [facility] 2019-11-27 2019-11-27 Outpatient [facility] [id number] 07:30:00 07:30:00 -[id number] [facility] Results Test Description Test Time Test Comments Results Result Sourc e Comments MRI BRAIN WO 2021-09-23 15:36:[address] [facility] : 1950 Sex: M [facility] [address] [address] Patient Name: NAHED GARNER MR #: [id number] : 1950 Age/Sex: 70/M Req #: [id number] Adm Physician: Ordered by: CLYDE LIRA MD Report #: [id number] Location: MRI Room/Bed: Procedure: [id number] MRI/MRI BRAIN WO Exam Date: 09/23/21 Exam Time: 1115 REPORT STATUS: Signed MRI BRAIN WO INDICATION: Dizziness and giddiness TECHNIQUE: Multiplanar, multisequence MR imaging of the brain was obtained. COMPARISON: None FINDINGS: Brain parenchyma is normal in morphology. Remote lacunar infarcts of the left thalamus. No restricted diffusion to suggest recent ischemic insult. No abnormal susceptibility. Scattered T2/FLAIR hyperintense foci within the periventricular and subcortical white matter are nonspecific, however, statistically represent chronic microvascular ischemic changes. No hydrocephalus. Orbits are within normal limits. No obstructive paranasal sinus disease. IMPRESSION: No acute intracranial findings Signed by: Tracy Valdez on 09/23/2021 3:36 PM Dictated By: TRACY VALDEZ MD 469 Transcribed By: [employer] on 09/23/216 COPY TO: CLYDE LIRA MD GASTRIC,BIOPSY 2020-10-28 17:36:00 Test Item Value Reference Range Interpretation Comme nts GASTRIC,BIOPSY RUN DATE: (test code = 10/28/20 [facility] PAG E 1 RUN TIME: 1736 Specimen Inquiry RUN USER: INTERFACE GASTB) PATIENT: NAHED GARNER LOC: [facility] U #: [id number] AGE/SX: 69/M [facility]OM[facility]: Malachi Gomez MD : 46 BED: DIS: STATUS: [facility] TLOC: SPEC #: [id number] RECD: STATUS: CORY DE LA CRUZ #: [id number] BOO: 10/27/[address] [facility] [address]: Malachi Gomez MD ENTERED: 10/27/20 SP TYPE: GASTRIC BX OTHR DR: Clyde Lira MD ORDERED: GROSS COPIES TO: Malachi Gomez MD [address] [place] [address] Clyde Lira MD [address] [address] PROCEDURES: GROSS (10/28/20-1328) TISSUES: 1. DUODENUM, NOS - BX 2. GASTRIC CORPUS - BX CLINICAL HISTORY COLLECTION DATE: 10/27/20 DYSPEPSIA FINAL DIAGNOSIS Duodenum, biopsy: BENIGN DUODENAL MUCOSA WITH NO PATHOLOGIC ALTERATION Gastric tissue, rule out H-pylori, biopsy: MILD CHRONIC INACTIVE GASTRITIS N O AREAS OF MUCOSAL EROSION/ULCERATION NEGATIVE FOR INTESTINAL METAPLASIA NEGATIVE FOR HELICOBACTER OR GANISMS NEGATIVE FOR MALIGNANCY RRB/bren D [id number], 73592 CONTINUED ON NEXT PAGE RUN DATE: 10/28/20 Michele Colon PAGE 2 RUN TIME: 1736 Specimen Inquiry RUN USER: INTERFACE SPEC #: [id number] PATIENT: PATSYNAHED GARCIA #[id number] (Continued) MACROSCOPIC Specimen (1) is received in formalin, labeled with the patient's name, identified as "duodenum", and consists of multiple fragments of pink-ayala biopsy tissue measuring 0.35 cm in aggregate, submitted as (1). Specimen ( 2) is received in formalin, labeled with the patient's name, identified as "gastric", and consists of p ink-ayala biopsy tissue measuring 0.35 cm in aggregate, submitted as (2). GROSS PERFORMED AT [facility] [address] [place] [address] (P) MICROSCOPIC To exclude helicobacter organisms a giemsa stain was performed on the gastric bio psy. No organisms are identified. All of the stains, including any controls performed, stain appropriate ly. 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 Positiv e results do not rule out bacterial infection or co -infection with other viru ses. Negative result s do not preclude SARS-C oV-2 infection andsh ould not be used as the padmini e basis for patient managementdecis ions. Negative result s must be combined with otherclinical observations, p atient history, and epidemiological information . Detection of SARS-CoV-2 RNA may be affe cted bysample collec tion methods, storag e conditions, and /or stageof infection. Cora l RNA mutations, vacc inations, antiviraltherap eutics, antibiotics, chemotherapeuti c orimmunosuppres rajiv drugs have not been e valuated for effectson d etection. Results are for the identification of SARS-CoV-2 RNA usingreal-time (RT) polymerase cesia n reaction (PCR) technolog yfor the qualitative det ection of nucleic acids f rom [id number] v irus and diagnosis of SA RS-CoV-2 virusinfection. It is an Emergency Use Authorization ( EUA) testauthorized by the U.S. FDA. Novel Coronavirus 14:46:00 Test Item Value Reference Range Interpretation Comments Novel Coronavirus Negative Negative Positive r esults are 2019 Inhouse (test indicativ e of the presence code = [id number]) ofSARS-CoV -2 RNA, clinical correlation wit h patient historyand othe r diagnostic info rmation is necessary to determinepatien t infection status. Positiv e results do not rule out bacterial infection or co -infection with other viru ses. Negative result s do not preclude SARS-C oV-2 infection andsh ould not be used as the padmini e basis for patient managementdecis ions. Negative result s must be combined with otherclinical observations, p atient history, and epidemiological information . Detection of SARS-CoV-2 RNA may be affe cted bysample collec tion methods, storag e conditions, and /or stageof infection. Cora l RNA mutations, vacc inations, antiviraltherap eutics, antibiotics, chemotherapeuti c orimmunosuppres rajiv drugs have not been e valuated for effectson d etection. Results are for the identification of SARS-CoV-2 RNA usingreal-time (RT) polymerase cesia n reaction (PCR) technolog yfor the qualitative det ection of nucleic acids f rom [id number] v irus and diagnosis of SA RS-CoV-2 virusinfection. It is an Emergency Use Authorization ( EUA) testauthorized by the U.S. FDA. CBC W/AUTO [id number] 15:13:00 Test Item Value Reference Range Interpretation Comments WHITE BLOOD CELL (test code = 8.1 K/mm3 4.5-12.5 N WBC) RED BLOOD CELL (test code = 4.53 mill/mm3 4.0-5.8 N RBC) HEMOGLOBIN (test code = HGB) 14.2 gram/dL 13.0-17.5 N HEMATOCRIT (test code = HCT) 42.4 % 42.0-52.0 N MEAN CELL VOLUME (test code = 93.6 fL 80-98 N MCV) MEAN CELL HGB (test code = MCH) 31.3 picogram 27.0-33.0 N MEAN CELL HGB CONCETRATION 33.5 gram/dL 33.0-36.0 N (test code = MCHC) RED CELL DISTRIBUTION WIDTH 13.1 % 11.6-16.2 N (test code = RDW) RED CELL DISTRIBUTION WIDTH SD 44.3 fL 37.0-51.0 N (test code = RDW-SD) PLATELET COUNT (test code = 257 K/mm3 150-450 N PLT) MEAN PLATELET VOLUME (test code 11.4 fL 6.7-11.0 H = MPV) NEUTROPHIL % (test code = NT%) 59.8 % 39.0-69.0 N IMMATURE GRANULOCYTE % (test 0.5 % 0.0-5.0 N code = IG%) LYMPHOCYTE % (test code = LY%) 26.8 % 25.0-55.0 N MONOCYTE % (test code = MO%) 8.9 % 0.0-10.0 N EOSINOPHIL % (test code = EO%) 3.3 % 0.0-5.0 N BASOPHIL % (test code = BA%) 0.7 % 0.0-1.0 N NUCLEATED RBC % (test code = 0.0 % 0-0 N NRBC%) NEUTROPHIL # (test code = NT#) 4.85 K/mm3 1.8-7.7 N IMMATURE GRANULOCYTE # (test 0.04 x10 3/uL 0-0.03 H code = IG#) LYMPHOCYTE # (test code = LY#) 2.18 K/mm3 1.0-5.0 N MONOCYTE # (test code = MO#) 0.72 K/mm3 0-0.8 N EOSINOPHIL # (test code = EO#) 0.27 K/mm3 0.0-0.5 N BASOPHIL # (test code = BA#) 0.06 K/mm3 0.0-0.2 N NUCLEATED RBC # (test code = 0.00 K/mm3 0.0-0.1 N NRBC#) BASIC METABOLIC [id number] 15:09:00 Test Item Value Reference Range Interpretation Comments SODIUM (test code = 136 mmol/L 136-145 N NA) POTASSIUM (test code 3.8 mmol/L 3.5-5.1 N = K) CHLORIDE (test code 105.0 mmol/L 98-107 N = CL) CARBON DIOXIDE (test 28.0 mmol/L 21-32 N code = CO2) ANION GAP (test code 6.8 10-20 L = GAP) GLUCOSE (test code = 263 mg/dL 74-106 H GLU) BLOOD UREA NITROGEN 11 mg/dL 7-18 N (test code = BUN) GLOMERULAR > 60 mL/min See_Comment Estimated GFR b y FILTRATION RATE using Modifi ed MDRD (test code = GFR) formula.Ch ronic kidney disease is defined as eith er kidney damageor GFR <60 mL/min/1.73 m2 for >3 months. [Automated mess age] The system [employer] Information generated this result transmitted ref erence range: >=60. Th e reference range was not used to int erpret this result as normal/abnormal . 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 Positiv e results do not rule out bacterial infection or co -infection with other viru ses. Negative result s do not preclude SARS-C oV-2 infection andsh ould not be used as the padmini e basis for patient managementdecis ions. Negative result s must be combined with otherclinical observations, p atient history, and epidemiological information . Detection of SARS-CoV-2 RNA may be affe cted bysample collec tion methods, storag e conditions, and /or stageof infection. Cora l RNA mutations, vacc inations, antiviraltherap eutics, antibiotics, chemotherapeuti c orimmunosuppres rajiv drugs have not been e valuated for effectson d etection. Results are for the identification of SARS-CoV-2 RNA usingreal-time (RT) polymerase cesia n reaction (PCR) technolog yfor the qualitative det ection of nucleic acids f rom [id number]-1 v irus and diagnosis of SA RS-CoV-2 virusinfection. It is an Emergency Use Authorization ( EUA) testauthorized by the U.S. FDA. COMMENTS TO INGREDIENT MIXER: Daron Coronavirus 13:39:00 Test Item Value Reference Range Interpretation Comments Novel Coronavirus Negative Negative Positive r esults are 2019 Inhouse (test indicativ e of the presence code = [id number]) ofSARS-CoV -2 RNA, clinical correlation wit h patient historyand othe r diagnostic info rmation is necessary to determinepatien t infection status. Positiv e results do not rule out bacterial infection or co -infection with other viru ses. Negative result s do not preclude SARS-C oV-2 infection andsh ould not be used as the padmini e basis for patient managementdecis ions. Negative result s must be combined with otherclinical observations, p atient history, and epidemiological information . Detection of SARS-CoV-2 RNA may be affe cted bysample collec tion methods, storag e conditions, and /or stageof infection. Cora l RNA mutations, vacc inations, antiviraltherap eutics, antibiotics, chemotherapeuti c orimmunosuppres rajiv drugs have not been e valuated for effectson d etection. Results are for the identification of SARS-CoV-2 RNA usingreal-time (RT) polymerase cesia n reaction (PCR) technolog yfor the qualitative det ection of nucleic acids f rom [id number]-[id number] v irus and diagnosis of SA RS-CoV-2 virusinfection. It is an Emergency Use Authorization ( EUA) testauthorized by the U.S. FDA. COMMENTS TO INGREDIENT MIXER: NBASIC METABOLIC [id number] 12:13:00 Test Item Value Reference Range Interpretation Comments SODIUM (test code = 140 mmol/L 136-145 N NA) POTASSIUM (test code 3.8 mmol/L 3.5-5.1 N = K) CHLORIDE (test code 106.0 mmol/L 98-107 N = CL) CARBON DIOXIDE (test 27.0 mmol/L 21-32 N code = CO2) ANION GAP (test code 10.8 10-20 N = GAP) GLUCOSE (test code = 236 mg/dL 74-106 H GLU) BLOOD UREA NITROGEN 10 mg/dL 7-18 N (test code = BUN) GLOMERULAR > 60 mL/min See_Comment Estimated GFR b y FILTRATION RATE using Modifi ed MDRD (test code = GFR) formula.Ch ronic kidney disease is defined as eith er kidney damageor GFR <60 mL/min/1.73 m2 for >3 months. [Automated mess age] The system [employer] Information generated this result transmitted ref erence range: >=60. Th e reference range was not used to int erpret this result as normal/abnormal . CREATININE (test 0.70 mg/dL 0.7-1.3 N code = CREAT) BUN/CREATININE RATIO 15.2 10-20 N (test code = BUN/CREA) CALCIUM (test code = 9.0 mg/dL 8.5-10.1 N CA) CBC W/AUTO [id number] 12:06:00 Test Item Value Reference Range Interpretation Comments WHITE BLOOD CELL (test code = 6.4 K/mm3 4.5-12.5 N WBC) RED BLOOD CELL (test code = 4.30 mill/mm3 4.0-5.8 N RBC) HEMOGLOBIN (test code = HGB) 13.6 gram/dL 13.0-17.5 N HEMATOCRIT (test code = HCT) 40.8 % 42.0-52.0 L MEAN CELL VOLUME (test code = 94.9 fL 80-98 N MCV) MEAN CELL HGB (test code = MCH) 31.6 picogram 27.0-33.0 N MEAN CELL HGB CONCETRATION 33.3 gram/dL 33.0-36.0 N (test code = MCHC) RED CELL DISTRIBUTION WIDTH 12.9 % 11.6-16.2 N (test code = RDW) RED CELL DISTRIBUTION WIDTH SD 44.7 fL 37.0-51.0 N (test code = RDW-SD) PLATELET COUNT (test code = 236 K/mm3 150-450 N PLT) MEAN PLATELET VOLUME (test code 11.3 fL 6.7-11.0 H = MPV) NEUTROPHIL % (test code = NT%) 56.7 % 39.0-69.0 N IMMATURE GRANULOCYTE % (test 0.5 % 0.0-5.0 N code = IG%) LYMPHOCYTE % (test code = LY%) 29.5 % 25.0-55.0 N MONOCYTE % (test code = MO%) 9.8 % 0.0-10.0 N EOSINOPHIL % (test code = EO%) 2.7 % 0.0-5.0 N BASOPHIL % (test code = BA%) 0.8 % 0.0-1.0 N NUCLEATED RBC % (test code = 0.0 % 0-0 N NRBC%) NEUTROPHIL # (test code = NT#) 3.63 K/mm3 1.8-7.7 N IMMATURE GRANULOCYTE # (test 0.03 x10 3/uL 0-0.03 N code = IG#) LYMPHOCYTE # (test code = LY#) 1.89 K/mm3 1.0-5.0 N MONOCYTE # (test code = MO#) 0.63 K/mm3 0-0.8 N EOSINOPHIL # (test code = EO#) 0.17 K/mm3 0.0-0.5 N BASOPHIL # (test code = BA#) 0.05 K/mm3 0.0-0.2 N NUCLEATED RBC # (test code = 0.00 K/mm3 0.0-0.1 N NRBC#) MANUAL DIFF REQUIRED (test code NO = MDIFF) Capillary blood glucose measurement by glucometer (mass/volume)2020-01-16 08:15:00 Test Item Value Reference Range Interpretation Comments Bedside Glucose (test code = 217 mg/dL 70-120 51439-6) Meter ID: [id number] HospitalBlood hemoglobin measurement (moles/volume)2020-01-16 06:03:00 Test Item Value Reference Range Interpretation Comments Hemoglobin (test code = 47563-6) 10.7 g/dL 14.0-18.0 [facility] hematocrit (volume fraction) 2020-01-16 06:03:00 Test Item Value Reference Range Interpretation Comments Hematocrit (test code = 4544-3) 31.0 % 38.2-49.6 [facility] (moles/volume) 2020-01-16 05:03:00 Test Item Value Reference Range Interpretation Comments Hemoglobin (test code = 72996-1) 10.7 14.0-18.0 [facility] Hospital[facility] hematocrit (volume fraction) 2020-01-16 05:03:00 Test Item Value Reference Range Interpretation Comments Hematocrit (test code = 4544-3) 31.0 38.2-49.6 [facility] HospitalCapillary blood glucose measurement by glucometer (mass/volume)2020-01-15 10:12:00 Test Item Value Reference Range Interpretation Comments Bedside Glucose (test code = 41481-1) 270 70-120 Meter ID: [id number] HospitalPELVIS AP 1-2 VIEWS 2020-01-15 09:58:00 [place] [address] Patient Name: NAHED GARNER MR #: [id number] : 1950 Age/Sex: 69/M Re #:[id number] [facility] Physician: Ordered by: MAHAD COWART MD Report #: [id number] Location: OR Room/Bed: __ Procedure: [id number] DX/PELVIS AP 1-2 VIEWS Exam Date: 01/15/20 Exam Time: 935 REPORT STATUS: Signed Exam: AP pelvis History: Postoperative evaluation Comparison: None. Findings: See impression Impression: Postoperative radiograph of a right total hip arthroplasty with intact components. No complication. Signed by: Dr. Que Bland M.D. on 01/15/2020 9:59 AM Dictated By: QUE BLAND MD 8 Transcribed By: SALOMÓN on 01/15/20958 COPY TO: MAHAD COWART MDFluoroscopic procedure less than one hour nsjjtzuz9983-02-73 12:05:00 Test Item Value Reference Range Interpretation Comments Coronavirus (PCR) (test code = NOT DETECTED NOTDETECTED Coronavirus (PCR)) [employer] SARS-CoV-2 assay is a nucleic amplification test intended for the qualitative detection of RNA from SARS-CoV-2 from nasopharyngeal (PSYCHOLOGICAL OPERATIONS SPECIALIST) specimens. It is used under Emergency Use Authorization (EUA) by FDA.A positive result is indicative of the presence of SARS-CoV-2 RNA. Clinical correlation with patient history and other diagnostic information is necessary to determine patient infection status.A negative (Not Detected) result does not preclude SARS-CoV-2 infection. Clinical Correlation with patient history and other diagnostic information should be used in patient management decisions.Invalid: Unable to generate a valid result on this specimen. Please submit a new specimen for repra t testing oc clinically indicated.Tesing performed by:[facility] Laboratory [address] [place] [address] [id number], Jarrod Gomes MD, PhDUniversity HospitalBlood leukocytes automated count (number/volume)2020-01-11 11:10:00 Test Item Value Reference Range Interpretation Comments White Blood Count (test code = 7.92 10*3/uL 4.8-10.8 6690-2) [facility] HospitalBlood erythrocytes automated count (number/volume)2020-01-11 11:10:00 Test Item Value Reference Range Interpretation Comments Red Blood Count (test code = 4.33 10*6/mL 4.3-5.7 789-8) [facility] HospitalAutomated erythrocyte mean corpuscular volume 2020-01-11 11:10:00 Test Item Value Reference Range Interpretation Comments Mean Corpuscular Volume (test code = 91.7 81-99 787-2) [facility] HospitalAutomated erythrocyte mean corpuscular hemoglobin (mass per erythrocyte)2020-01-11 11:10:00 Test Item Value Reference Range Interpretation Comments Mean Corpuscular Hemoglobin (test 31.4 pg 28-32 code = 785-6) [facility] HospitalAutomated erythrocyte mean corpuscular hemoglobin concentration measurement (mass/volume)2020-01-11 11:10:00 Test Item Value Reference Range Interpretation Comments Mean Corpuscular Hemoglobin Concent 34.3 g/dL 31-35 (test code = 786-4) University HospitalRDW JlpAc-Wxp1105-76-28 11:10:00 Test Item Value Reference Range Interpretation Comments Red Cell Distribution Width (test code 12.7 % 11.7-14.4 = 37859-1) [facility] HospitalAutomated blood platelet count (count/volume) 2020-01-11 11:10:00 Test Item Value Reference Range Interpretation Comments Platelet Count (test code = 232 10*3/uL 140-360 777-3) University HospitalAutomated blood segmented neutrophil count as percentage of total wcbdagnnao7505-69-92 11:10:00 Test Item Value Reference Range Interpretation Comments Neutrophils (%) (Auto) (test code = 58.6 % 38.7-80.0 22093-0) University HospitalAutomated blood lymphocyte count as percentage ot total xzwnygcsor3342-32-43 11:10:00 Test Item Value Reference Range Interpretation Comments Lymphocytes (%) (Auto) (test code = 27.9 % 18.0-39.1 736-9) [facility] HospitalAutomated blood monocyte count as percentage of total olfjagxtem0279-47-96 11:10:00 Test Item Value Reference Range Interpretation Comments Monocytes (%) (Auto) (test code = 8.0 % 4.4-11.3 5905-5) [facility] HospitalAutomated blood eosinophil count as percentage of total nnabwvmkdm6485-88-74 11:10:00 Test Item Value Reference Range Interpretation Comments Eosinophils (%) (Auto) (test code = 4.0 % 0.0-6.0 713-8) [facility] HospitalAutomated blood basophil count as percentage of total pqgvdtcfal6660-81-37 11:10:00 Test Item Value Reference Range Interpretation Comments Basophils (%) (Auto) (test code = 0.9 % 0.0-1.0 706-2) [facility] HospitalFluoroscopic procedure less than one hour avaftnav4718-90-32 11:10:00 Test Item Value Reference Range Interpretation Comments IM GRANULOCYTES % (test code = IM 0.6 % 0.0-1.0 GRANULOCYTES %) University HospitalAutomated blood neutrophil ncrmd2626-88-31 11:10:00 Test Item Value Reference Range Interpretation Comments Neutrophils # (Auto) (test code = 4.6 2.1-6.9 751-8) [facility] HospitalBlood lymphocytes count (number/volume) 2020-01-11 11:10:00 Test Item Value Reference Range Interpretation Comments Lymphocytes # (Auto) (test code = 2.2 1.0-3.2 79811-8) University HospitalBlood monocytes automated count (number/volume)2020-01-11 11:10:00 Test Item Value Reference Range Interpretation Comments Monocytes # (Auto) (test code = 742-7) 0.6 0.2-0.8 University HospitalAutomated blood eosinophil jaxhy2130-76-39 11:10:00 Test Item Value Reference Range Interpretation Comments Eosinophils # (Auto) (test code = 0.3 0.0-0.4 711-2) [facility] HospitalAutomated blood basophil count (count/volume) 2020-01-11 11:10:00 Test Item Value Reference Range Interpretation Comments Basophils # (Auto) (test code = 704-7) 0.1 0.0-0.1 University HospitalFluoroscopic procedure less than one hour ovdnctgg8271-30-66 11:10:00 Test Item Value Reference Range Interpretation Comments Absolute Immature Granulocyte 0.05 10*3/uL 0-0.1 (auto (test code = Absolute Immature Granulocyte (auto) [facility] sodium [facility] (moles/volume)2020-01-11 11:10:00 Test Item Value Reference Range Interpretation Comments Sodium Level (test code = 2951-2) 139 mmol/L 136-145 [facility] potassium measurement (moles/volume)2020-01-11 11:10:00 Test Item Value Reference Range Interpretation Comments Potassium Level (test code = 3.8 mmol/L 3.5-5.1 2823-3) [facility] chloride measurement (moles/volume)2020-01-11 11:10:00 Test Item Value Reference Range Interpretation Comments Chloride Level (test code = 106 mmol/L 98-107 2075-0) [facility] or plasma carbon dioxide, total measurement (moles/volume)2020-01-11 11:10:00 Test Item Value Reference Range Interpretation Comments Carbon Dioxide Level (test code = 23 mmol/L 2027-9) [facility] anion ukt1901-15-94 11:10:00 Test Item Value Reference Range Interpretation Comments Anion Gap (test code = 96489-7) 13.8 mmol/L 8-16 [facility] urea nitrogen measurement (mass/volume)2020-01-11 11:10:00 Test Item Value Reference Range Interpretation Comments Blood Urea Nitrogen (test code = 13 mg/dL 12-08 3094-0) [facility] creatinine measurement (mass/volume)2020-01-11 11:10:00 Test Item Value Reference Range Interpretation Comments Creatinine (test code = 2160-0) 0.87 mg/dL 0.72-1.25 [facility] or [facility] urea nitrogen/creatinine mass xowel1643-90-07 11:10:00 Test Item Value Reference Range Interpretation Comments BUN/Creatinine Ratio (test code = 15 11-07 3097-3) University HospitalEstimated glomerular filtration rate (GFR) fwgtebuhugcib7304-12-02 11:10:00 Test Item Value Reference Range Interpretation Comments Estimat Glomerular Filtration > 60 mL/min >60 Rate (test code = 074875569) Ranges were taken from the National Kidney Disease Education Program and the National Kidney Foundation literature.Reference ranges:60 or greater: Psgszh82- 59 (for 3 consecutive months): Chronic kidneydisease 15 or less: Kidney failure University HospitalGlucose nxbghbbpuox8302-80-99 11:10:00 Test Item Value Reference Range Interpretation Comments Glucose Level (test code = VIB9780) 163 mg/dL 74-118 [facility] calcium measurement (mass/volume)2020-01-11 11:10:00 Test Item Value Reference Range Interpretation Comments Calcium Level (test code = 84154-0) 9.5 mg/dL 8.4-10.2 University HospitalFluoroscopic procedure less than one hour gudbmlak2707-51-73 11:05:00 Test Item Value Reference Range Interpretation Comments Coronavirus (PCR) (test code = NOT DETECTED NOTDETECTED Coronavirus (PCR)) [employer] SARS-CoV-2 assay is a nucleic amplification test intended for the qualitative detection of RNA from SARS-CoV-2 from nasopharyngeal (PSYCHOLOGICAL OPERATIONS SPECIALIST) specimens. It is used under Emergency Use Authorization (EUA) by FDA.A positive result is indicative of the presence of SARS-CoV-2 RNA. Clinical correlation with patient history and other diagnostic information is necessary to determine patient infection status.A negative (Not Detected) result does not preclude SARS-CoV-2 infection. Clinical Correlation with patient history and other diagnostic information should be used in patient management decisions.Invalid: Unable to generate a valid result on this specimen. Please submit a new specimen for repra t testing oc clinically indicated.Tesing performed by:[facility] Laboratory [address] [place] [address] [id number], Jarrod Gomes MD, PhDCHI Public Health Service HospitalCHEST 2 VIEWS 2020-01-11 10:52:00 [facility] [address] [place] [address] Patient Name: NAHED GARNER MR #: [id number] : 1950 Age/Sex: 69/M Req #: [id number] Adm Physician: MAHAD COWART MD Ordered by: MAHAD COWART MD Report #: [id number] Location: MED/SURG Room/Bed: [facility] Procedure: [id number] DX/CHEST 2 VIEWS Exam Date: 01/11/20 Exam Time: 1014REPORT STATUS: Signed EXAM: CHEST 2 VIEWS DATE: 01/11/2020 10:44 AM INDICATION: Preoperative evaluation COMPARISON: None FINDINGS: The trachea is midline. There is minimal elevation of the right hemidiaphragm. There is no evidence for large focal consolidation, pneumothorax, or significant pleural effusion. The cardiomediastinal silhouette and pulmonary vasculature are within normal limits. No acute osseous abnormality is identified. The surrounding soft tissues are unremarkable. IMPRESSION: No acute cardiopulmonary process identified. Signed by: Dr. Tam Duffy MD on 01/11/2020 10:53 AM Dictated By: TAM DUFFY MD 1053 Transcribed By: Gena 01/11/20 1052 COPY TO: MAHAD COWART MDBlood leukocytes automated count (number/volume)2020-01-11 10:10:00 Test Item Value Reference Range Interpretation Comments White Blood Count (test code = 6690-2) 7.92 4.8-10.8 University HospitalBlood erythrocytes automated count (number/volume)2020-01-11 10:10:00 Test Item Value Reference Range Interpretation Comments Red Blood Count (test code = 789-8) 4.33 4.3-5.7 University HospitalAutomated erythrocyte mean corpuscular volume 2020-01-11 10:10:00 Test Item Value Reference Range Interpretation Comments Mean Corpuscular Volume (test code = 91.7 81-99 787-2) University HospitalAutomated erythrocyte mean corpuscular hemoglobin (mass per erythrocyte)2020-01-11 10:10:00 Test Item Value Reference Range Interpretation Comments Mean Corpuscular Hemoglobin (test code 31.4 28-32 = 785-6) [facility] HospitalAutomated erythrocyte mean corpuscular hemoglobin concentration measurement (mass/volume)2020-01-11 10:10:00 Test Item Value Reference Range Interpretation Comments Mean Corpuscular Hemoglobin Concent 34.3 31-35 (test code = 786-4) University HospitalRDW YrbJu-Bvc7999-77-28 10:10:00 Test Item Value Reference Range Interpretation Comments Red Cell Distribution Width (test code 12.7 11.7-14.4 = 09458-0) [facility] HospitalAutomated blood platelet count (count/volume) 2020-01-11 10:10:00 Test Item Value Reference Range Interpretation Comments Platelet Count (test code = 777-3) 232 140-360 University HospitalAutomated blood segmented neutrophil count as percentage of total efbdpbeyur0594-26-57 10:10:00 Test Item Value Reference Range Interpretation Comments Neutrophils (%) (Auto) (test code = 58.6 38.7-80.0 39841-3) University HospitalAutomated blood lymphocyte count as percentage ot total nwruyyvqgd0216-04-24 10:10:00 Test Item Value Reference Range Interpretation Comments Lymphocytes (%) (Auto) (test code = 27.9 18.0-39.1 736-9) University HospitalAutomated blood monocyte count as percentage of total kcykxufyzw3937-06-42 10:10:00 Test Item Value Reference Range Interpretation Comments Monocytes (%) (Auto) (test code = 8.0 4.4-11.3 5905-5) University HospitalAutomated blood eosinophil count as percentage of total prcxhxhmnu8765-05-16 10:10:00 Test Item Value Reference Range Interpretation Comments Eosinophils (%) (Auto) (test code = 4.0 0.0-6.0 713-8) [facility] HospitalAutomated blood basophil count as percentage of total ndnrwqnkra8303-33-44 10:10:00 Test Item Value Reference Range Interpretation Comments Basophils (%) (Auto) (test code = 0.9 0.0-1.0 706-2) [facility] HospitalFluoroscopic procedure less than one hour gvnetkee9088-38-30 10:10:00 Test Item Value Reference Range Interpretation Comments IM GRANULOCYTES % (test code = IM 0.6 0.0-1.0 GRANULOCYTES %) [facility] HospitalAutomated blood neutrophil vytro7931-18-09 10:10:00 Test Item Value Reference Range Interpretation Comments Neutrophils # (Auto) (test code = 4.6 2.1-6.9 751-8) [facility] HospitalBlood lymphocytes count (number/volume) 2020-01-11 10:10:00 Test Item Value Reference Range Interpretation Comments Lymphocytes # (Auto) (test code = 2.2 1.0-3.2 56050-9) [facility] HospitalBlood monocytes automated count (number/volume)2020-01-11 10:10:00 Test Item Value Reference Range Interpretation Comments Monocytes # (Auto) (test code = 742-7) 0.6 0.2-0.8 University HospitalAutomated blood eosinophil hptup5628-14-31 10:10:00 Test Item Value Reference Range Interpretation Comments Eosinophils # (Auto) (test code = 0.3 0.0-0.4 711-2) [facility] HospitalAutomated blood basophil count (count/volume) 2020-01-11 10:10:00 Test Item Value Reference Range Interpretation Comments Basophils # (Auto) (test code = 704-7) 0.1 0.0-0.1 [facility] HospitalFluoroscopic procedure less than one hour zqobodik8858-45-88 10:10:00 Test Item Value Reference Range Interpretation Comments Absolute Immature Granulocyte (auto 0.05 0-0.1 (test code = Absolute Immature Granulocyte (auto) [facility] sodium measurement (moles/volume)2020-01-11 10:10:00 Test Item Value Reference Range Interpretation Comments Sodium Level (test code = 2951-2) 139 136-145 [facility] potassium measurement (moles/volume)2020-01-11 10:10:00 Test Item Value Reference Range Interpretation Comments Potassium Level (test code = 2823-3) 3.8 3.5-5.1 [facility] chloride measurement (moles/volume)2020-01-11 10:10:00 Test Item Value Reference Range Interpretation Comments Chloride Level (test code = 2075-0) 106 98-107 [facility] or plasma carbon dioxide, total measurement (moles/volume)2020-01-11 10:10:00 Test Item Value Reference Range Interpretation Comments Carbon Dioxide Level (test code = -2027-9) [facility] or plasma anion csb9280-70-97 10:10:00 Test Item Value Reference Range Interpretation Comments Anion Gap (test code = 44977-0) 13.8 8-16 [facility] urea nitrogen measurement (mass/volume)2020-01-11 10:10:00 Test Item Value Reference Range Interpretation Comments Blood Urea Nitrogen (test code = 13 12-08 3094-0) [facility] creatinine measurement (mass/volume)2020-01-11 10:10:00 Test Item Value Reference Range Interpretation Comments Creatinine (test code = 2160-0) 0.87 0.72-1.25 [facility] or plasma urea nitrogen/creatinine mass dfblx7291-32-08 10:10:00 Test Item Value Reference Range Interpretation Comments BUN/Creatinine Ratio (test code = 15 6- 3097-3) [facility] HospitalEstimated glomerular filtration rate (GFR) ouqzasadwdpbu5625-10-74 10:10:00 Test Item Value Reference Range Interpretation Comments Estimat Glomerular Filtration Rate > 60 >60 (test code = 847297780) Ranges were taken from the National Kidney Disease Education Program and the National Kidney Foundation literature.Reference ranges:60 or greater: Shrdzr20- 59 (for 3 consecutive months): Chronic kidneydisease 15 or less: Kidney failure [facility] HospitalGlucose ojityqrvhbf9289-87-01 10:10:00 Test Item Value Reference Range Interpretation Comments Glucose Level (test code = ZHN3333) 163 74-118 [facility] calcium measurement (mass/volume)2020-01-11 10:10:00 Test Item Value Reference Range Interpretation Comments Calcium Level (test code = 69058-5) 9.5 8.4-10.2 [facility] HospitalCHEST 2 VIEWS [facility] [address] [place] [address] PatientName: NAHED GARNER MR #: [id number] : 1950 Age/Sex: 66/M Req #: [id number] Adm Physician: Ordered by: CLYDE LIRA MD Report #: [id number] Location: [facility] Room/Bed: ____ Procedure: [id number] DX/CHEST 2 VIEWS Exam Date: 06/22/17 Exam Time: 1020 REPORT STATUS: Signed PROCEDURE: Frontal and lateral views of the chest. COMPARISON: None. INDICATIONS: BRONCHITIS FINDINGS: Lines/tubes: None. Lungs: Low lung volumes. Minimal left basilar haziness. Pleura: There is no pleural effusion or pneumothorax. Heart and mediastinum: The heart and the mediastinum are normal. Bones: No acute bony abnormality. Degenerative changes of thoracic spine. IMPRESSION: Limited by low volumes. Minimal left basilar haziness, likely prominent cardiac fat-pad. Underlying atelectasis/pneumonia cannot be entirely excluded. Dictated by: Mark Ortiz M.D. on 06/22/2017 at 11:38 Electronically approved by: Mark Ortiz M.D. on 06/22/2017 at 11:38 Dictated By: MARK ORTIZ MD 1138 Transcribed By: ELIZABETH on 06/22/17 1138 COPY TO: CLYDE LIRA MD
[2022-05-15 12:03] LABS: SARS-COV-2 RT PCR NEGATIVE (NEGATIVE)
--- NOTE | 2022-05-15 12:14 | EDPHYS ---
Physician Documentation [facility] Name: Jose Eastman Age: 71 yrs Sex: Male : 1950 Arrival Date: 05/15/2022 Time: 11:01 Bed 10 Private MD: ED Physician Kamari Montiel HPI: 05/15 11:28 This 71 yrs old Male presents to ER via Ambulatory with complaints of Cough, kb Congestion, Runny Nose. 11:28 The patient or guardian reports cough, that is intermittent, described as mild. Onset: kb The symptoms/episode began/occurred 1 week(s) ago. Severity of symptoms: At their worst the symptoms were mild, moderate, in the emergency department the symptoms are unchanged. Modifying factors: The symptoms are alleviated by nothing, the symptoms are aggravated by nothing. Associated signs and symptoms: Pertinent positives: rhinorrhea, Pertinent negatives: chest pain, diarrhea, ear ache, fever, nausea, sore throat, vomiting. The patient has not experienced similar symptoms in the past. The patient has not recently seen a physician. Pt reports cough, congestion and runny nose for a week. Significant other has similar symptoms. Historical: - Allergies: 11:11 No Known Allergies; kb3 - PMHx: 11:11 Hypertensive disorder; Cerebrovascular accident; NIDDM; Hypercholesterolemia; kb3 - Immunization history:: Adult Immunizations up to date, Client reports receiving the 2nd dose of the Covid vaccine, Last tetanus immunization: up to date. - Social history:: Smoking status: Patient denies any tobacco usage or history of. ROS: 11:27 Constitutional: Negative for fever, chills, and weight loss. kb 11:27 ENT: Positive for rhinorrhea, sinus congestion. 11:27 Respiratory: Positive for cough. 11:27 All other systems are negative. Exam: 11:27 Constitutional: This is a well developed, well nourished patient who is awake, alert, kb and in no acute distress. Head/Face: Normocephalic, atraumatic. ENT: Moist Mucous membranes Cardiovascular: Regular rate and rhythm with a normal S1 and S2. No gallops, murmurs, or rubs. No pulse deficits. Respiratory: Respirations even and unlabored. No increased work of breathing. Talking in full sentences Abdomen/GI: Soft, non-tender. No distention Skin: Warm, dry with normal turgor. Normal color. MS/ Extremity: Pulses equal, no cyanosis. Neurovascular intact. Full, normal range of motion. Neuro: Awake and alert, GCS 15, oriented to person, place, time, and situation. Moves all extremities. Normal gait. Psych: Awake, alert, with orientation to person, place and time. Behavior, mood, and affect are within normal limits. Vital Signs: 11:09 BP 140 / 75; Pulse 85; Resp 20; Temp 97.7; Pulse Ox 98% ; Weight 95.25 kg; Height 5 ft. kb3 8 in. (172.72 cm); Pain 2/10; 12:35 BP 158 / 86; Pulse 84; Resp 15; Temp 97.7; Pulse Ox 95% ; jl7 11:09 Body Mass Index 31.93 (95.25 kg, 172.72 cm) kb3 MDM: 11:12 Patient medically screened. kb 11:28 Data reviewed: vital signs, nurses notes. Data interpreted: Pulse oximetry: on room air kb is 98 %. Interpretation: normal. 12:13 Counseling: I had a detailed discussion with the patient and/or guardian regarding: the kb historical points, exam findings, and any diagnostic results supporting the discharge/admit diagnosis, lab results, the need for outpatient follow up, a family practitioner, to return to the emergency department if symptoms worsen or persist or if there are any questions or concerns that arise at home. 05/15 11:12 Order name: COVID-19/FLU A+B; Complete Time: 12:07 kb Administered Medications: No medications were administered Disposition: 13:21 Co-signature as Attending Physician, Kamari Montiel MD. rn Disposition Summary: 05/15/22 12:13 Discharge Ordered Location: Home kb Condition: Stable kb Diagnosis - Acute upper respiratory infection, unspecified kb Followup: kb - With: Emergency Department - When: As needed - Reason: Worsening of condition Followup: kb - With: Private Physician - When: 2 - 3 days - Reason: Recheck today's complaints, Continuance of care, Re-evaluation by your physician Discharge Instructions: - Discharge Summary Sheet kb - Upper Respiratory Infection, Adult, Ahhm-oo-Aaxn kb - Viral Respiratory Infection, Ljom-Zp-Uolp kb Forms: - Medication Reconciliation Form kb - Thank You Letter kb - Antibiotic Education kb - Prescription Opioid Use kb Signatures: Dispatcher [employer] Argelia Bowser, PRODUCE INSPECTOR-C PRODUCE INSPECTOR-Ckb Kamari Montiel MD MD rn Bradberry, Kelly, RN RN kb3
--- NOTE | 2022-05-15 12:14 | ER ---
Nurse's Notes [facility] Name: Jose Eastman Age: 71 yrs Sex: Male : 1950 Arrival Date: 05/15/2022 Time: 11:01 Bed 10 Private MD: Diagnosis: Acute upper respiratory infection, unspecified Presentation: 05/15 11:09 Chief complaint: Patient states: cough, congestion x 1 week. Coronavirus screen: kb3 Vaccine status: Patient reports receiving the 2nd dose of the covid vaccine. Client denies travel out of the [place] in the last 14 days. Ebola Screen: Patient negative for fever greater than or equal to 101.5 degrees Fahrenheit, and additional compatible Ebola Virus Disease symptoms Patient denies exposure to infectious person. Patient denies travel to an Ebola-affected area in the 21 days before illness onset. Initial Sepsis Screen: Does the patient meet any 2 criteria? No. Patient's initial sepsis screen is negative. Does the patient have a suspected source of infection? No. Patient's initial sepsis screen is negative. Risk Assessment: Do you want to hurt yourself or someone else? Patient reports no desire to harm self or others. Onset of symptoms was May 08, 2022. 11:09 Method Of Arrival: Ambulatory kb3 11:09 Acuity: MOOSE 4 kb3 Triage Assessment: 11:11 General: Appears in no apparent distress. Behavior is calm, cooperative. Pain: kb3 Complains of pain in head, chest, right arm, left arm, right leg and left leg Pain does not radiate. Pain currently is 2 out of 10 on a pain scale. Respiratory: Breath sounds are clear bilaterally. Historical: - Allergies: 11:11 No Known Allergies; kb3 - PMHx: 11:11 Hypertensive disorder; Cerebrovascular accident; NIDDM; Hypercholesterolemia; kb3 - Immunization history:: Adult Immunizations up to date, Client reports receiving the 2nd dose of the Covid vaccine, Last tetanus immunization: up to date. - Social history:: Smoking status: Patient denies any tobacco usage or history of. Screenin:14 [facility] ED Fall Risk Assessment (Adult) History of falling in the last 3 months, kb3 including since admission No falls in past 3 months (0 pts) Confusion or Disorientation No (0 pts) Intoxicated or Sedated No (0 pts) Impaired Gait No (0 pts) Mobility Assist Device Used No (0 pt) Altered Elimination No (0 pt) Score/Fall Risk Level 0 - 2 = Low Risk Oriented to surroundings, Maintained a safe environment, Educated pt \T\ family on fall prevention, incl call for assistance when getting out of bed, Assessed \T\ reinforced patient's understanding of fall precautions, Provided non-skid footwear, Hourly rounding (assess needs \T\ fall precautionary measures) done, Used ambulatory aids as needed (educated on \T\ assisted with), Used gait belt as appropriate. Abuse screen: Denies threats or abuse. Denies injuries from another. Nutritional screening: No deficits noted. Tuberculosis screening: No symptoms or risk factors identified. Assessment: 11:14 General: see triage note. Respiratory: Airway is patent Respiratory effort is even, kb3 unlabored. 12:35 Reassessment: Patient appears in no apparent distress at this time. No changes from jl7 previously documented assessment. Patient and/or family updated on plan of care and expected duration. Pain level reassessed. Patient is alert, oriented x 3, equal unlabored respirations, skin warm/dry/pink. Cardiovascular: Patient's skin is warm and dry. Respiratory: Airway is patent Respiratory effort is even, unlabored, Respiratory pattern is regular, symmetrical. Vital Signs: 11:09 BP 140 / 75; Pulse 85; Resp 20; Temp 97.7; Pulse Ox 98% ; Weight 95.25 kg; Height 5 ft. kb3 8 in. (172.72 cm); Pain 2/10; 12:35 BP 158 / 86; Pulse 84; Resp 15; Temp 97.7; Pulse Ox 95% ; jl7 11:09 Body Mass Index 31.93 (95.25 kg, 172.72 cm) kb3 ED Course: 11:01 Patient arrived in ED. rg4 11:08 Argelia Ruiz FNP-C is [facility]. kb 11:08 Kamari Montiel MD is Attending Physician. kb 11:11 Triage completed. kb3 11:11 Arm band placed on right wrist. kb3 11:14 Patient has correct armband on for positive identification. kb3 11:14 No provider procedures requiring assistance completed. Patient did not have IV access kb3 during this emergency room visit. 11:18 Lidia Pedraza, RN is Primary Nurse. kb3 11:18 COVID-19/FLU A+B Sent. kb3 Administered Medications: No medications were administered Medication: 11:14 VIS not applicable for this client. kb3 Outcome: 12:13 Discharge ordered by . kb 12:35 Discharged to home ambulatory. jl7 12:35 Condition: stable 12:35 Discharge instructions given to patient, Instructed on discharge instructions, follow up and referral plans. Demonstrated understanding of instructions, follow-up care. 12:36 Patient left the ED. jl7 Signatures: Argelia Ruiz, TANBARK PEELER-C TANBARK PEELER-[place], RN RN jl7 Lidia Pedraza, RN RN kb3
[2022-05-15 12:43] VITALS: TEMP 97.7
[2022-05-15 12:44] VITALS: BP 158/86; O2SAT 95
== END 2022-05-15 12:36 | disposition home or self-care (01) ==
LOC: ER 10:56
DX: J06.9 Acute upper respiratory infection, unspecified (principal); Z20.822 Contact with and (suspected) exposure to COVID-19; E11.9 Type 2 diabetes mellitus without complications; I10 Essential (primary) hypertension; Z86.73 Personal history of transient ischemic attack (TIA), and cerebral infarction without residual deficits
CPT/HCPCS: 0240U; 99283

== ENCOUNTER → 2023-06-07 | Day surgery (SDC) | payer MEDICARE ==
[2023-06-03 11:53] LABS: Absolute Lymphocytes (CBC) 1.7 K/uL (0.7-4.9); Hematocrit 40.1 % (39.6-49.0); Lymphocytes % 26.7 % (15.3-44.8); MCV 96.5 fL (80-100); MPV 9.6 fL (7.6-11.3); Platelets 201 thou/uL (152-406); RBC Red Blood Cell Count 4.15 M/uL (4.33-5.43)
[2023-06-03 12:00] LABS: Protime INR 0.91
--- NOTE | 2023-06-06 17:02 | EKG ---
Test Date: 2023-06-03 Test Time: 12:31:59 Wheat Cleaner: MARIO MEASUREMENT RESULTS: Intervals: Rate: 73 MI: 154 QRSD: 104 QT: 406 QTc: 447 [place]: P: 27 MI: 154 QRS: -39 T: 21 INTERPRETIVE STATEMENTS: Normal sinus rhythm Left axis deviation Incomplete right bundle branch block Moderate voltage criteria for LVH, may be normal variant Cannot rule out Septal infarct, age undetermined Abnormal ECG No previous ECG available for comparison Electronically Signed On 06-06-23 16:54:08 AUTOMATIC I THREADING MACHINE FEEDER by Steve Roca
[~2023-06-07] MED LIST: BALANCED SALT IRRIG PLAIN 500 ML IRR ONE; BSS OPTHALMIC SOL 15 ML OPTH ONE; DUOVISC 1 KIT OPTH ONE; EPINEPHRINE 1 MG/ML VIAL ONE; FENTANYL CITR 100 MCG/2 ML ONE; LIDOCAINE 2% MPF 5 ML VIAL ONE; NA CHLORIDE 0.9% 1,000 ML ONE; ONDANSETRON 4 MG/2 ML VIAL ONE; POVIDONE-IODINE 5% EYE DROPS ONE; TOBRADEX 0.3-0.1% OPTH OINTMENT ONE; dexAMETHasone 10 MG/ML VIAL ONE; propofoL 200 MG/20 ML VIAL IV ONE
[2023-06-07] MEDS: PHENYLEPHRINE 10% OPTH 5ML ONE ×3 (07:00→07:29)
[2023-06-07] MEDS: MOXIFLOXACIN HCL 0.5% 3ML OPTH OPTH ONE ×3 (07:00→07:29)
[2023-06-07] MEDS: CYCLOPENTOLATE 2% OPTH 2 ML ONE ×3 (07:00→07:29)
[2023-06-07] MEDS: TROPICAMIDE 1% OPTH 15 ML BOT ONE ×3 (07:00→07:29)
[2023-06-07] MEDS: KETOROLAC OPTHALMIC 5 ML BOT ONE ×3 (07:00→07:29)
--- NOTE | 2023-06-07 08:54 | OP ---
Date of Procedure: 06/07/2023 Surgeon: David Colorado MD Railroad Yard Worker: There were no assistants. The patient is to follow up with myself Dr. David Colorado tomorrow. Preoperative Diagnosis: Visually significant senile cataract, right eye. Postoperative Diagnosis: Visually significant senile cataract, right eye. Procedure Performed: Cataract extraction, right eye, with placement of Vivity toric intraocular lens. Description Of Procedure: After being properly identified and marking the limbus in the preoperative holding area, the patient was taken back to the operating room, where a time-out was performed. The patient was then prepped and draped in the normal sterile fashion. Examination of the eye underneath the operating microscope revealed my 3 alignment michel that I had made in the preoperative holding area with the patient sitting upright at 180 degrees and then at 90 degrees inferiorly. The globe was grasped with a pair of 0.12 forceps and paracentesis wounds were made nasally and temporally and the anterior chamber filled with Viscoat. The main phaco incision wound was then made superiorly in a triplanar fashion using a 2.4 mm keratome. A continuous curvilinear capsulorrhexis was initiated with a cystotome and completed with an Utrata forceps and free rotation of the lens nucleus was accomplished with hydrodissection and hydrodelineation using a Emmanuel cannula. The lens was thereafter removed in a [id number]-qiyfud-xsj-conquer technique. Once all 4 quadrants had been removed, the phaco handpiece was exchanged for bimanual irrigation/aspiration handpieces and all remaining cortical material was removed. The Jayson model 20.5 diopter CCWET3 [place] Vivity toric, Serial number [id number], was implanted into the capsular bag and rotated into position at 160 degrees, which had been marked using a toric marking set prior to the initiation of any incisions. The remaining viscoelastic was then removed and after confirmation of the limbs in good orientation, the wounds were hydrated and found to be watertight and the procedure concluded with no complications. Estimated Blood Loss: Nil. Specimens: No specimens were sent. Drains: No drains were placed. JPG/MODL Voice ID: [id number] Report ID: [id number] [facility]ITALBhargavi
[2023-06-07 09:14] VITALS: BP 127/69; TEMP 98; O2SAT 97
== END ==
LOC: OR 06:10
PROVIDERS: ATTEND Ophthalmology
PROC: 08RJ30Z Replacement of Right Lens with Intraocular Telescope, Percutaneous Approach (ICD-10-PCS; principal; 2023-06-07 07:30)
DX: H25.89 Other age-related cataract (principal)
CPT/HCPCS: 93005; 85025; 80048; 36415; 85610; 82947 ×2; 85730; 66984; J2704; J1885; J2001; J3010; J1100; J0171; J2405; J7030

== ENCOUNTER 2025-02-26 14:38 | Emergency (ER) | payer MEDICARE, OTHER ==
[2025-02-26 15:54] LABS: Absolute Lymphocytes (CBC) 1.9 K/uL (0.7-4.9); Hematocrit 45.6 % (39.6-49.0); Hemoglobin 15.2 g/dL (13.6-17.9); MCH 31.6 pg (27.0-35.0); MCHC 33.5 g/dL (32.0-36.0); MCV 94.3 fL (80-100); MPV 9.0 fL (7.6-11.3); Nucleated RBC Absolute Count 0.0 (0-0); Nucleated Red Blood Cells % 0.2 % (0-0); RBC Red Blood Cell Count 4.83 M/uL (4.33-5.43); White Blood Count 7.00 thou/uL (4.3-10.9)
[2025-02-26 16:05] LABS: PT Prothrombin Time 11.1 SECONDS (10-13.0); PTT, Activated Partial Thromb 29.8 SECONDS (27.2-37.4); Protime INR 0.98
[2025-02-26 16:08] LABS: Anion Gap 8.8 mEq/L (5.0-15.0); BUN Blood Urea Nitrogen 15.0 mg/dL (7-18); Glucose Level 122.0 mg/dL (74-106); Potassium 3.8 mEq/L (3.5-5.1)
--- NOTE | 2025-02-26 17:08 | RAD REPORT ---
EXAM: CT brain without contrast HISTORY: Left facial numbness. COMPARISON: None TECHNIQUE: Multiple contiguous axial images were obtained and a CT of the brain without contrast.. Sagittal and coronal reconstruction performed. Automated exposure control, adjustment of the mA and/or kV according to patient size, and/or iterative reconstruction. Unless otherwise specified, incidental f indings do not require dedicated imaging follow-up FINDINGS: An intracranial bleed is not seen Ventricles are normal caliber No extra-axial fluid collection noted Small low-density area left thalamus. No fluid within the visualized sinuses or mastoids noted. IMPRESSION: Small low-density area left thalamus probably lacunar infarct. Age indeterminate. If clinically indic ated further evaluation with MR could be obtained
--- NOTE | 2025-02-26 17:15 | RAD REPORT ---
EXAMINATION: Neck Angio CLINICAL INDICATION: Left facial numbness TECHNIQUE: Axial CT images were obtained from the aortic arch to the skull base after intravenous adm inistration of 100 cc Isovue-370 utilizing angiographic protocol. Multiplanar reformats, as well as 3D post-processing (maximum intensity projection images, volume rendered images and/or shaded surface rendered images) were generated and reviewed. One or more of the following dose reduction techniques were used: Automated exposure control, adjustment of the mA and/or kV according to patient size, and/or iterative reconstruction. Unless otherwise specified, incidental findings do not require dedicated imaging follow-up. COMPARISON: No prior exam. FINDINGS: The visualized aortic arch and great vessels do not demonstrate a significant abnormality Mild to moderate calcified plaque right carotid bulb. Mild narrowing proximal right internal carotid artery. Mild plaque common carotid, internal carotid and external carotid arteries. Mild plaque vertebral arteries. No significant stenosis noted. A dissection is not seen. Methods for NASCET criteria: Mild stenosis, 0% to 49%; Moderate stenosis 50% to 69%; Severe stenosis, 70% to 99% IMPRESSION: No acute vascular abnormality displayed
--- NOTE | 2025-02-26 17:17 | RAD REPORT ---
EXAMINATION: CTA HEAD CLINICAL INDICATION: Left facial numbness TECHNIQUE: Axial CT images were obtained through the head after 100 cc Isovue-370 intravenous contras t utilizing angiographic protocol with 3D post-processing (maximum intensity projection images, volume rendered images and/or shaded surface rendered images). One or more of the following dose red uction techniques were used: Automated exposure control, adjustment of the mA and/or kV according to patient size, and/or iterative reconstruction. Unless otherwise specified, incidental findings do not require dedicated imaging follow-up. COMPARISON: None FINDINGS: Mild calcified plaque distal internal carotid arteries bilaterally. The basilar, anterior cerebral, middle cerebral and posterior cerebral arteries do not demonstrate a significant stenosis An aneurysm not noted. No large vessel occlusion IMPRESSION: No acute vascular abnormality displayed
--- NOTE | 2025-02-26 17:28 | EDPHYS ---
Physician Documentation [facility] Name: Jose Eastman Age: 74 yrs Sex: Male : 1950 Arrival Date: 02/26/2025 Time: 14:38 Bed 2 Private MD: ED Physician Kamari Montiel HPI: 02/26 15:31 This 74 yrs old Male presents to ER via Ambulatory with complaints of Numbness Of face. rn 15:31 Patient reports numbness of the left side of the face that began yesterday morning. Was rn yanet. Currently denies any symptoms and reports his back to normal. Takes aspirin and Plavix for previous stroke. Seen by PCP today and directed to the emergency room "for evaluation". Currently has no complaints.. Historical: - Allergies: 14:58 No Known Allergies; db - PMHx: 14:58 Cerebrovascular accident; Hypercholesterolemia; Hypertensive disorder; NIDDM; db - Immunization history:: Adult Immunizations unknown. - Infectious Disease History:: Denies. - Social history:: Smoking status: unknown. - Family history:: not pertinent. - Hospitalizations: : No recent hospitalization is reported. ROS: 15:31 Constitutional: Negative for fever, chills, and weight loss, Neck: Negative for injury, rn pain, and swelling, Cardiovascular: Negative for chest pain, palpitations, and edema, Respiratory: Negative for shortness of breath, cough, wheezing, and pleuritic chest pain, Abdomen/GI: Negative for abdominal pain, nausea, vomiting, diarrhea, and constipation, Back: Negative for injury and pain, MS/Extremity: Negative for injury and deformity, Skin: Negative for injury, rash, and discoloration, Neuro: Negative for headache, negative for current weakness or numbness Exam: 15:31 Constitutional: This is a well developed, well nourished patient who is awake, alert, rn and in no acute distress. Patient ambulatory to triage and is talking on the phone Head/Face: Normocephalic, atraumatic. Eyes: Pupils equal round and reactive to light, extra-ocular motions intact. Lids and lashes normal. Conjunctiva and sclera are non-icteric and not injected. Cornea within normal limits. Periorbital areas with no swelling, redness, or edema. Cardiovascular: Regular rate and rhythm. No pulse deficits. Respiratory: No increased work of breathing, no retractions or nasal flaring. Abdomen/GI: Soft, non-tender MS/ Extremity: Pulses equal, no cyanosis. Neurovascular intact. Full, normal range of motion. Equal circumference. Neuro: Awake and alert, GCS 15, oriented to person, place, time, and situation. Cranial nerves II-XII grossly intact. Motor strength 5/5 in all extremities. Sensory grossly intact. Cerebellar exam normal. Normal gait. 16:34 ECG was reviewed by the Attending Physician. rn Vital Signs: 14:56 BP 142 / 68; Pulse 65; Resp 16; Temp 98.3; Pulse Ox 96% on R/A; Weight 96.62 kg; Height db 5 ft. 5 in. ; 17:25 BP 146 / 67; Pulse 64; Resp 15; Pulse Ox 99% ; hb 14:56 Body Mass Index 35.44 (96.62 kg, 165.1 cm) db NIH Stroke Scale Scores: 14:59 NIHSS Score: 0 db MDM: 14:45 Medical Screening Exam initiated rn 17:24 Data reviewed: vital signs, nurses notes, lab test result(s), EKG, radiologic studies, rn CT scan, and as a result, I will discharge patient. Consideration of Admission/Observation Escalation of care including admission/observation considered. Escalation and admission considered but patient does not want to be admitted, symptoms have completely resolved, he is already on aspirin and Plavix. No new stroke, seen on CT just old stroke and he was aware of and left him with right sided symptoms.. Independent interpretation of the following test(s) in the Emergency Department CT Scan: My interpretation is CT head images negative for acute hemorrhage per my interpretation. classroom monitor: rate is 65 beats/min, Rhythm is normal sinus rhythm, regular, with no ectopy, Interpretation: normal rate, normal rhythm. Counseling: I had a detailed discussion with the patient and/or guardian regarding the historical points, exam findings, and any diagnostic results supporting the discharge/admit diagnosis, lab results, radiology results, the need for outpatient follow up, to return to the emergency department if symptoms worsen or persist or if there are any questions or concerns that arise at home. Response to treatment: the patient's symptoms have resolved after treatment, the patient's condition has returned to base line, the patient is now symptom free, and as a result, I will discharge patient. ED course: Patient does not want to be admitted. Workup here shows old stroke but symptoms have completely resolved, most likely TIA or nonspecific facial paresthesias. Stable vital signs. Spoke at length with patient regarding importance of medication and treatment of any strokelike symptoms in the future and he understands time limitations and importance of coming in in timely fashion.. 02/26 15:03 Order name: CBC with Diff; Complete Time: 16:11 rn 02/26 15:03 Order name: Basic Metabolic Panel; Complete Time: 16: rn 02/26 15:03 Order name: Protime (+inr); Complete Time: 16:11 rn 02/26 15:03 Order name: Ptt, Activated; Complete Time: 16: rn 02/26 15:03 Order name: CT Head Brain wo Cont; Complete Time: 17:19 rn 02/26 15:03 Order name: Head Angio CT; Complete Time: 17:19 rn 02/26 15:03 Order name: Neck Angio CT; Complete Time: 17:19 rn 02/26 15:03 Order name: IV Start; Complete Time: 15:53 rn EC:34 Rate is 60 beats/min. Rhythm is regular. QRS [place] is Normal. [place] interval is normal. QRS rn interval is normal. No Q waves. T waves are Normal. No ST changes noted. Clinical impression: NSR w/ Non-specific ST/T Changes. Interpreted by me. Reviewed by me. Administered Medications: No medications were administered Disposition Summary: 02/26/25 17:26 Discharge Ordered Notes: Location: Home rn Problem: new rn Symptoms: are resolved rn Condition: Stable rn Diagnosis - Transient cerebral ischemic attack, unspecified rn - Paresthesia of skin rn Followup: rn - With: Private Physician - When: As needed - Reason: Recheck today's complaints, Re-evaluation by your physician Discharge Instructions: - Discharge Summary Sheet rn - Paresthesia rn - Transient Ischemic Attack rn Forms: - Medication Reconciliation Form rn - Antibiotic rn plastic surgery - Prescription Opioid Use rn - Patient Portal Instructions rn - Leadership Thank You Letter rn NIH Stroke Scale - NIH Stroke Score Date: 02/26/2025 Time: 14:59 Total Score = 0 10. Dysarthria (speech clarity - read or repeat words) - 0(Normal) 11. Extinction and Inattention (visual/tactile/auditory/spatial/personal) - 0(No abnormality) 1a. Level of Consciousness (LOC) - 0(Alert) 1b. Level of Consciousness (LOC) (Month \\T\\ Age) - 0(Both) 1c. LOC Commands (Open \\T\\ Closes Eyes/Industrial Maintenance Repairer) - 0(Both) 2. Best Gaze (Lateral Gaze Paresis) - 0(Normal) 3. Visual Field Loss - 0(No visual loss) 4. Facial Palsy - 0(Normal) 5a. Left Arm: Motor (10-second hold) - 0(No drift) 5b. Right Arm: Motor (10-second hold) - 0(No drift) 6a. Left Leg: Motor (5-second hold - always test supine) - 0(No drift) 6b. Right Leg: Motor (5-second hold - always test supine) - 0(No drift) 7. Limb Ataxia (finger/nose \\T\\ heel/mcknihgt - test with eyes open) - 0(Absent) 8. Sensory Loss (pinprick arms/legs/face) - 0(Normal) 9. Best Language: Aphasia (description/naming/reading) - 0(No aphasia) Initials: db Signatures: Dispatcher [employer] Kamari Randle MD MD rn Benton, Danielle, RN RN db
--- NOTE | 2025-02-26 17:28 | ER ---
Nurse's Notes [facility] Name: Jose Eastman Age: 74 yrs Sex: Male : 1950 Arrival Date: 02/26/2025 Time: 14:38 Bed 2 Private MD: Diagnosis: Transient cerebral ischemic attack, unspecified;Paresthesia of skin Presentation: 02/26 14:56 Chief complaint: Patient states: LEFT FACIAL NUMBNESS STARTED YESTERDAY MORNING. STATES db TODAY FEELS NUMBNESS IN LIPS. STATES WENT TO PCP TODAY AND WAS RECOMMENDED TO COME IN TODAY. STATES HX OF PREVIOUS STROKE. TAKING PLAVIX NOW. Coronavirus screen: Client denies travel out of the [place] in the last 14 days. At this time, the client does not indicate any symptoms associated with coronavirus-19. Ebola Screen: Patient negative for fever greater than or equal to 101.5 degrees Fahrenheit, and additional compatible Ebola Virus Disease symptoms Patient denies exposure to infectious person. Patient denies travel to an Ebola-affected area in the 21 days before illness onset. No symptoms or risks identified at this time. Initial Sepsis Screen: Does the patient meet any 2 criteria? No. Patient's initial sepsis screen is negative. Does the patient have a suspected source of infection? No. Patient's initial sepsis screen is negative. Risk Assessment: Do you want to hurt yourself or someone else? Patient reports no desire to harm self or others. Onset of symptoms was February 26, 2025. 14:56 Method Of Arrival: Ambulatory db 14:56 Acuity: MOOSE 2 db Triage Assessment: 14:58 General: Appears in no apparent distress. comfortable, Behavior is calm, cooperative. db Pain: Denies pain. Neuro: Level of Consciousness is awake, alert, obeys commands, Oriented to person, place, time, situation, Moves all extremities. Speech is normal, Facial symmetry appears normal. Respiratory: Airway is patent Respiratory effort is even, unlabored, Respiratory pattern is regular, symmetrical. Historical: - Allergies: 14:58 No Known Allergies; db - PMHx: 14:58 Cerebrovascular accident; Hypercholesterolemia; Hypertensive disorder; NIDDM; db - Immunization history:: Adult Immunizations unknown. - Infectious Disease History:: Denies. - Social history:: Smoking status: unknown. - Family history:: not pertinent. - Hospitalizations: : No recent hospitalization is reported. Screenin:59 [facility] ED Fall Risk Assessment (Adult) History of falling in the last 3 months, hb including since admission No falls in past 3 months (0 pts) Confusion or Disorientation No (0 pts) Intoxicated or Sedated No (0 pts) Impaired Gait No (0 pts) Mobility Assist Device Used No (0 pt) Altered Elimination No (0 pt) Score/Fall Risk Level 0 - 2 = Low Risk Oriented to surroundings, Maintained a safe environment, Educated pt \T\ family on fall prevention, incl call for assistance when getting out of bed. Abuse screen: Denies threats or abuse. Denies injuries from another. Nutritional screening: No deficits noted. Tuberculosis screening: No symptoms or risk factors identified. Assessment: 15:59 General: Appears in no apparent distress. Behavior is calm, cooperative. Pain: Denies hb pain. Neuro: Level of Consciousness is awake, alert, obeys commands, Oriented to person, place, time, situation. Cardiovascular: Patient's skin is warm and dry. Respiratory: Respiratory effort is even, unlabored, Respiratory pattern is regular, symmetrical. GI: No signs and/or symptoms were reported involving the gastrointestinal system. : No signs and/or symptoms were reported regarding the genitourinary system. EENT: No signs and/or symptoms were reported regarding the EENT system. Derm: Skin is pink, warm \T\ dry. Musculoskeletal: No signs and/or symptoms reported regarding the musculoskeletal system. 17:25 Reassessment: Patient appears in no apparent distress at this time. Patient and/or hb family updated on plan of care and expected duration. Pain level reassessed. Patient is alert, oriented x 3, equal unlabored respirations, skin warm/dry/pink. Vital Signs: 14:56 BP 142 / 68; Pulse 65; Resp 16; Temp 98.3; Pulse Ox 96% on R/A; Weight 96.62 kg; Height db 5 ft. 5 in. ; 17:25 BP 146 / 67; Pulse 64; Resp 15; Pulse Ox 99% ; hb 14:56 Body Mass Index 35.44 (96.62 kg, 165.1 cm) db NIH Stroke Scale Scores: 14:59 NIHSS Score: 0 db ED Course: 14:42 Patient arrived in ED. im 14:45 Kamari Montiel MD is Attending Physician. rn 14:58 Triage completed. db 14:58 Arm band placed on. db 15:52 Initial lab(s) drawn, by me, sent to lab. Inserted saline lock: 20 gauge in left iw antecubital area, using aseptic technique. Blood collected. Flushed with 10 mL NS. 15:58 Alin Mason, RN is Primary Nurse. bp 15:59 EKG done, by ED staff. tm3 17:01 CT Head Brain wo Cont In Process Unspecified. EDMS 17:[address] In Process Unspecified. EDMS 17:[address] In Process Unspecified. EDMS Administered Medications: No medications were administered Medication: 15:59 VIS not applicable for this client. hb Outcome: 17:26 Discharge ordered by MD. rn 18:34 Patient left the ED. bp NIH Stroke Scale - NIH Stroke Score Date: 02/26/2025 Time: 14:59 Total Score = 0 10. Dysarthria (speech clarity - read or repeat words) - 0(Normal) 11. Extinction and Inattention (visual/tactile/auditory/spatial/personal) - 0(No abnormality) 1a. Level of Consciousness (LOC) - 0(Alert) 1b. Level of Consciousness (LOC) (Month \T\ Age) - 0(Both) 1c. LOC Commands (Open \T\ Closes Eyes/Radiotelephone Technical Operator) - 0(Both) 2. Best Gaze (Lateral Gaze Paresis) - 0(Normal) 3. Visual Field Loss - 0(No visual loss) 4. Facial Palsy - 0(Normal) 5a. Left Arm: Motor (10-second hold) - 0(No drift) 5b. Right Arm: Motor (10-second hold) - 0(No drift) 6a. Left Leg: Motor (5-second hold - always test supine) - 0(No drift) 6b. Right Leg: Motor (5-second hold - always test supine) - 0(No drift) 7. Limb Ataxia (finger/nose \T\ heel/mcknight - test with eyes open) - 0(Absent) 8. Sensory Loss (pinprick arms/legs/face) - 0(Normal) 9. Best Language: Aphasia (description/naming/reading) - 0(No aphasia) Initials: db Signatures: Dispatcher [employer] EDMS WilliamCosmo salinasi tm3 Jabier, Moira, RN Kamari Ferguson MD MD rn Baxter, Heather, RN RN hb Alin Mason RN RN bp Erin Elaine RN RN db Jessica Rodriguez Corrections: (The following items were deleted from the chart) 14:58 14:56 Chief complaint: Patient states: LEFT FACIAL NUMBNESS STARTED YESTERDAY db MORNING. STATES TODAY FEELS NUMBNESS IN LIPS. STATES WENT TO PCP TODAY AND WAS RECOMMENDED TO COME IN TODAY. STATES HX OF PREVIOUS STROKE db 14:58 14:56 Pulse 65bpm; Resp 16bpm; Pulse Ox 96% RA; db db 15:02 14:56 BP 142 / 68; Pulse 65bpm; Resp 16bpm; Pulse Ox 96% RA; db db
[2025-02-27 02:15] VITALS: TEMP 98.3
[2025-02-27 02:19] VITALS: BP 146/67; O2SAT 99
== END 2025-02-26 18:34 | disposition home or self-care (01) ==
LOC: ER 14:38
DX: G45.9 Transient cerebral ischemic attack, unspecified (principal); I10 Essential (primary) hypertension; Z86.73 Personal history of transient ischemic attack (TIA), and cerebral infarction without residual deficits
CPT/HCPCS: 93005; 85025; 80048; 36415; 85610; 85730; 70450; 70496; 70498; 99284; Q9967